=== PATIENT | male | born 1965 | race Caucasian/White ===

== ENCOUNTER → 2019-08-21 13:43 | Outpatient (BNVA) | payer OTHER, SELFPAY | PROVIDERS: Family Provider Emergency Medicine Emergency Medical Services; PCP Emergency Medicine Emergency Medical Services; Visit Provider Specialist | DX: G43.719 Chronic migraine without aura, intractable, without status migrainosus (principal); I67.9 Cerebrovascular disease, unspecified; Z87.891 Personal history of nicotine dependence | CPT/HCPCS: 64615; 99212; J0585 ==

== ENCOUNTER → 2019-11-15 09:32 | Outpatient (BNVA) | payer OTHER, SELFPAY | PROVIDERS: Family Provider Emergency Medicine Emergency Medical Services; PCP Emergency Medicine Emergency Medical Services; Visit Provider Specialist | DX: G43.711 Chronic migraine without aura, intractable, with status migrainosus (principal); Z87.891 Personal history of nicotine dependence | CPT/HCPCS: 64615; 96372; J0585; J1885; J2405 ==

== ENCOUNTER → 2020-02-14 08:50 | Outpatient (BNVA) | payer OTHER, SELFPAY | PROVIDERS: Family Provider Emergency Medicine Emergency Medical Services; PCP Emergency Medicine Emergency Medical Services; Visit Provider Specialist | DX: G43.711 Chronic migraine without aura, intractable, with status migrainosus (principal); Z95.2 Presence of prosthetic heart valve | CPT/HCPCS: 64615; 96372; J0585; J1885 ==

== ENCOUNTER 2020-02-18 15:20 | Emergency (ER) | payer OTHER, SELFPAY ==
[2020-02-18 16:01] VITALS: BP 139/88; PULSE 97; RESP 18; TEMP 36.7; O2SAT 94; BMI 38.5
--- NOTE | 2020-02-18 16:19 | W.ED.HA ---
HPI - Headache General: Chief Complaint: Headache Stated Complaint: migrane Time Seen by Provider: 02/18/20 16:02 History of Present Illness: HPI Narrative: Patient is a 54-year-old male who comes to the ED with a migraine. Patient has a past medical history of hyperlipidemia and hypertension and migraines and has been seen Dr. Person and receiving Botox injections. Patient reports migraine has been going on now for almost 2 weeks. It is gotten significantly worse in the past 3 days. Migraine is rated a 10 out of 10 currently says that this is where the worst migraine he has ever had. migraine is retroorbital. Associated symptoms: Reports nausea; Deny chest pain, fever(s), rash or vomiting Review of Systems Const: Denies: fever(s), chills or fatigue Eyes: Reports: photophobia; Denies: change in vision or eye discomfort ENMT: Denies: throat pain, odynophagia, nasal discharge or nasal congestion Card: Denies: chest pain, palpitations, edema, swelling of feet/ankles, dyspnea on exertion or orthopnea Resp: Denies: dyspnea, productive cough or non-productive cough GI: Reports: nausea; Denies: abdominal pain, vomiting, diarrhea, constipation or hematochezia : Denies: flank pain, difficulty urinating, dysuria or hematuria Musc: Denies: neck pain, back pain or extremity swelling Skin/Breast: Denies: rash or new lesions Neuro: Reports: headache(s); Denies: numbness in extremities or weakness in extremities PFSH ED PFSH: Medical History HTN (hypertension) Hyperlipidemia Leg swelling Surgical History Hx of aortic valve replacement Hx of aortic valvuloplasty Family History Other CAD (coronary artery disease) Cancer Denies family history of Diabetes Hypertension Stroke Social History Smoking and tobacco status: former smoker Quit status (tobacco): has quit using tobacco Year quit tobacco: 2014 Alcohol intake: former History of recent travel: No Physical Exam Narrative: EXAM NARRATIVE: Patient is a 54-year-old male that is lying in bed with the lights off and with an eye mask on when I entered the exam room. Const: COMMON NORMALS: patient oriented x3 and alert GENERAL APPEARANCE: cooperative HENMT: COMMON NORMALS: normocephalic HEAD & SCALP: normocephalic MOUTH: Normal oral and palatal mucosa present THROAT: posterior oropharynx normal and uvula midline Neck/C-Spine: COMMON NORMALS: supple GENERAL: Yes normal visual inspection Resp: COMMON NORMALS: normal respiratory effort, No retractions, No use of accessory muscles and clear to auscultation bilaterally AUSCULTATION: clear to auscultation bilaterally Cardio: COMMON NORMALS: regular rate, regular rhythm, S1 normal heart sound present, S2 normal heart sound present, No gallops present (Cardio), No clicks present (Cardio), No murmurs present (Cardio) and Peripheral pulses 2+ throughout RATE: regular rate RHYTHM: regular rhythm HEART SOUNDS: S1 normal heart sound present and S2 normal heart sound present PERIPHERAL PULSES: Peripheral pulses 2+ throughout GI: COMMON NORMALS: Normal to inspection, nondistended, normoactive bowel sounds present, Soft to palpation, non-tender and no masses PALPATION: Yes Soft to palpation : COMMON NORMALS: Yes no CVA tenderness BLADDER/KIDNEY EXAM: Yes no CVA tenderness Back/Pelvis: COMMON NORMALS: no CVA tenderness Extremity: COMMON NORMALS: normal to inspection and no pedal edema Neuro: COMMON NORMALS: patient oriented x3 and moves all extremities SENSORIUM/ORIENTATION: Yes alert Skin: COMMON NORMALS: no rashes or lesions noted GENERAL SKIN EXAM: no rashes or lesions noted and dry skin Course Vital Signs: Vital signs: Vital Signs Temperature 98.1 F 02/18/20 16:01 Pulse Rate 82 02/18/20 18:15 Respiratory Rate 18 02/18/20 18:15 Blood Pressure 153/77 02/18/20 18:15 Pulse Oximetry 95 02/18/20 18:15 MDM - Headache MDM Narrative: Medical decision making narrative: Patient is a 54-year-old male who comes to the ED with a migraine. He has a past medical history of stroke, hypertension, hyperlipidemia and migraines. Patient stated that this is the longest migraine that he is ever had and worst, so head CT was ordered. CT of the head showed no acute findings, but some chronic encephalomalacia was noted in left temporal and parietal lobe. Patient was given migraine cocktail and his migraine improved. Patient was discharged and told to follow-up with his PCP in 7 to 10 days. Return to ED precautions given. Patient understood and agreed with plan. Imaging Data^: CT Head: Attestation: I personally reviewed and interpreted this imaging study as follows: Radiologist's impression: [address] [place] [address] CT Scan Report Signed Patient: Lizbeth Theodore #: [id number] : 1965Acct#:[id number] Age/Sex: 54 / MADM Date: 02/18/20 Loc: ERRoom/Bed: Attending Dr: Ordering Provider/Ordering MD: Driss Luque Date of Service: 02/18/20 Procedure(s): CT head wo con* [id number] Accession Number(s): [id number] Report Number: [id number] PROCEDURE INFORMATION: Exam: CT Head Without Contrast Exam date and time: 02/18/2020 4:33 PM Age: 54 years old Clinical indication: Pain; Headache; Additional info: Migraine TECHNIQUE: Imaging protocol: Computed tomography of the head without contrast. Radiation optimization: All CT scans at this facility use at least one of these dose optimization techniques: automated exposure control; mA and/or kV adjustment per patient size (includes targeted exams where dose is matched to clinical indication); or iterative reconstruction. COMPARISON: CT head wo con* [id number] 10/01/2018 3:08 PM RADIATION DOSE METRICS: Total DLP (mGy-cm): 898.52 FINDINGS: Brain: There is encephalomalacia in the left temporal parietal lobes compatible with old infarct. There is no acute hemorrhage, edema or mass effect. There is unchanged mass in the suprasellar cistern containing fat and calcification measuring 11 mm in size unchanged in configuration. Ventricles: Normal. No ventriculomegaly. Bones/joints: Unremarkable. No acute fracture. Sinuses: Visualized sinuses are unremarkable. No fluid levels. Mastoid air cells: Visualized mastoid air cells are well aerated. Soft tissues: Unremarkable. CT/CT head wo con* [id number] IMPRESSION: 1. No acute intracranial abnormality. Chronic encephalomalacia of the left temporal/parietal lobe is noted. No hemorrhage. 2. Unchanged suprasellar mass containing fat and calcium . This may be a dermoid lesion or craniopharyngioma. Radiation Dose CTDIVOL = (mGy): DLP = 898.52 (mGy-cm) Dictated By:Erika Thrasher Signed By:Isaac Thrasherigned Date/Time:02/18/201714 DD/ 12 Discharge Plan Discharge Patient Disposition: Home Clinical Impression: Migraine Qualifiers: Migraine type: without aura Status migrainosus presence: with status migrainosus Intractability: not intractable Qualified Code(s): G43.001 - Migraine without aura, not intractable, with status migrainosus Condition: Stable Prescriptions: No Action aspirin [Aspir-81] 81 mg tablet,delayed release (DR/EC) 81 mg PO DAILY RF: 0 cholecalciferol (vitamin D3) 2,000 unit tablet 2,000 unit PO DAILY RF: 0 diltiazem HCl 60 mg tablet 60 mg PO BID RF: 0 trazodone 100 mg tablet 100 mg PO DAILY RF: 0 omega-3 fatty acids [Fish Oil Concentrate] 1,000 mg capsule 1,000 mg PO BID RF: 0 metoprolol tartrate 50 mg tablet 25 mg PO BID RF: 0 omeprazole 40 mg capsule,delayed release(DR/EC) 40 mg PO BID RF: 0 lamotrigine 200 mg tablet 200 mg PO DAILY RF: 0 venlafaxine 75 mg tablet See Rx Instructions PO DAILY RF: 0 rosuvastatin 10 mg tablet 10 mg PO DAILY RF: 0 warfarin 6 mg tablet 6 mg PO DAILY RF: 0 ascorbic acid (vitamin C) 500 mg capsule 500 mg PO DAILY RF: 0 ferrous sulfate 325 mg (65 mg iron) tablet 325 mg PO DAILY RF: 0 zonisamide [Zonegran] 100 mg capsule 400 mg PO DAILY Qty: 120 RF: 4 Discharge Orders: Discharge Order (Routine); Ordered 02/18/20 Ordered By: Driss Luque Referrals: aKm Lainez DO [Primary Care Provider] - Discharge Diet: Regular Discharge Activity: Resume usual activity Patient Instructions: Migraine Headache (ED) Activity Restrictions/Additional Instructions: Follow-up with medical provider as directed in 7-10 days. Continue taking all home medications as previously prescribed. Return to the ER or your medical provider if condition worsens. Please read and understand discharge instructions. If any questions, please ask. 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
[2020-02-18] MEDS: diphenhydrAMINE 50 mg/mL SDV 1mL 25 MG IVP (17:35)
[2020-02-18] MEDS: dexamethasone 10 mg/mL INJ IVP (17:40)
[2020-02-18] MEDS: ketorolac 30 mg/mL INJ IVP (17:40)
[2020-02-18 18:15] VITALS: BP 153/77; PULSE 82; RESP 18; O2SAT 95
== END 2020-02-18 18:17 | disposition home or self-care (01) ==
PROVIDERS: Emergency Provider Physician Assistant; PCP Emergency Medicine Emergency Medical Services
DX: G43.001 Migraine without aura, not intractable, with status migrainosus (principal); Z79.82 Long term (current) use of aspirin; Z79.01 Long term (current) use of anticoagulants; I10 Essential (primary) hypertension; E78.5 Hyperlipidemia, unspecified; Z87.891 Personal history of nicotine dependence
CPT/HCPCS: 12345; 70450; 96374; 96375; 99282; 99284; J1100; J1200; J1885; J3490

== ENCOUNTER → 2020-07-17 11:33 | Outpatient (BNVA) | payer OTHER, SELFPAY | PROVIDERS: PCP Emergency Medicine Emergency Medical Services; Visit Provider Specialist | DX: G43.711 Chronic migraine without aura, intractable, with status migrainosus (principal); S09.90XA Unspecified injury of head, initial encounter; W10.8XXA Fall (on) (from) other stairs and steps, initial encounter; Y92.9 Unspecified place or not applicable; Z87.891 Personal history of nicotine dependence | CPT/HCPCS: 64615; 99214; J0585 ==

== ENCOUNTER 2020-07-17 13:24 | Outpatient (CLI) | payer OTHER, SELFPAY ==
--- NOTE | 2020-07-17 13:00 | CT_ITS ---
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 Bone and soft tiss ue windows. Sagittal and coronal reformats reviewed. All CT scans at [facility] use at le ast one of these dose optimization techniques: automated exposure control; mA and/or kV adjustment pe r patient size (includes targeted exams where dose is matched to clinical indication); or iterative r econstruction. DLP: 857.68 mGy.cm COMPARISON: 02/18/2020. No acute intracranial hemorrhage, midline shift or mass effect. Mild atrophy and chronic ischemic disease. Prior infarct with encephalomalacia involving the LEFT tem poral lobe. Ventricles: Normal size with no hydrocephalus. Paranasal sinuses: As visualized are clear. Mastoid air cells: Well pneumatized. Calvarium and scalp: Skull is intact with no soft tissue edema or swelling. CT/CT head wo con* [id number] IMPRESSION: 1. No acute intracranial hemorrhage. 2. Prior remote LEFT temporal lobe infarct with encephalomalacia is stable.
== END 2020-07-17 13:25 | disposition home or self-care (01) ==
LOC: CT 13:25
PROVIDERS: PCP Emergency Medicine Emergency Medical Services; Visit Provider Specialist
DX: Z79.01 Long term (current) use of anticoagulants (principal); G93.89 Other specified disorders of brain
CPT/HCPCS: 70450

== ENCOUNTER 2020-08-24 19:51 | Emergency (ER) | payer OTHER, SELFPAY ==
[2020-08-24 20:06] VITALS: BP 132/85; BP 141/88; PULSE 101; PULSE 107; RESP 14; RESP 16; TEMP 37.6; O2SAT 94; O2SAT 96; O2SAT 99; BMI 35.3
--- NOTE | 2020-08-24 20:12 | XRR_ITS ---
PROCEDURE INFORMATION: Exam: XR Chest, 1 View Exam date and time: 08/24/2020 8:25 PM Age: 54 years old Clinical indication: Prior surgery; Surgery type: Aortic valve; Patient HX: Covid symptoms, fever, nausea TECHNIQUE: Imaging protocol: XR of the chest Views: 1 view. COMPARISON: CR Chest 1 [place] [id number] 09/24/2018 6:10 PM FINDINGS: Lungs: Unremarkable. No consolidation. Pleural spaces: Unremarkable. No pleural effusion. No pneumothorax. Heart/Mediastinum: Unremarkable. No cardiomegaly. Bones/joints: Median sternotomy wires are present. XR/XR chest 1V portable [id number] IMPRESSION: 1. No radiographic findings of acute cardiopulmonary disease.
--- NOTE | 2020-08-24 20:18 | ED_ITS ---
HPI - COVID General: Chief Complaint: COVID symptoms Stated Complaint: COVID symptoms Time Seen by Provider: 08/24/20 20:11 Source: patient Mode of arrival: ambulatory Limitations: no limitations Triage information: Has fever, cough or shortness of breath . Exposure to COVID + person last 14 days History of Present Illness: HPI Narrative: 54-year-old male who states over the last 4 days he has had a cough along with some congestion and nausea. He states he is also had body aches and low-grade fevers. He has had a headache with no neck pain or stiffness. He denies any vomiting or diarrhea. Denies any neck pain. He has had sick contacts and his has had the same symptoms. COVID 19 common symptoms: positive fever(s), chills, non-productive cough, body aches, headache(s) and nausea; negative throat pain COVID 19 other sytmptoms: negative chest pain COVID Results: SARS-CoV-2 Antigen (Rapid) Positive (Negative) H 08/24/20 20:52 08/24/20 Review of Systems Const: Reports: fever(s), chills and body aches Eyes: Denies: blurry vision or eye discomfort ENMT: Denies: throat pain or dental pain Card: Denies: chest pain Resp: Reports: non-productive cough GI: Reports: nausea : Denies: dysuria Musc: Denies: neck pain or back pain Skin/Breast: Denies: rash Neuro: Reports: headache(s) Psych: Denies: depression Gerry/Lymph: Denies: easy bruising All/Imm: Denies: urticaria PFSH ED PFSH: Medical History (Updated 08/24/20 @ 21:41 by Jesus Banerjee MD) HTN (hypertension) Hyperlipidemia Leg swelling Surgical History Hx of aortic valve replacement Hx of aortic valvuloplasty Family History Other CAD (coronary artery disease) Cancer Denies family history of Diabetes Hypertension Stroke Social History Smoking and tobacco status: former smoker Quit status (tobacco): has quit using tobacco Year quit tobacco: 2015 Alcohol intake: former History of recent travel: No Physical Exam Const: COMMON NORMALS: no acute distress, patient oriented x3 and healthy appearing HENMT: COMMON NORMALS: normocephalic and atraumatic HEAD & SCALP: normocephalic and atraumatic Eye: COMMON NORMALS: Equal, round and reactive pupils present and EOMs intact bilaterally PUPIL: Yes Equal, round and reactive pupils present Neck/C-Spine: COMMON NORMALS: full ROM and supple Chest: COMMONS NORMALS: normal inspection of the chest and normal palpation of entire chest wall Resp: COMMON NORMALS: normal respiratory effort, No retractions, No use of accessory muscles and clear to auscultation bilaterally AUSCULTATION: clear to auscultation bilaterally Cardio: COMMON NORMALS: regular rate, regular rhythm and No murmurs present (Cardio) RATE: regular rate RHYTHM: regular rhythm GI: COMMON NORMALS: Normal to inspection, nondistended, normoactive bowel sounds present, Soft to palpation, non-tender and no masses PALPATION: Yes Soft to palpation Extremity: COMMON NORMALS: normal to inspection and full ROM Neuro: COMMON NORMALS: patient oriented x3, moves all extremities and no focal motor deficits Psych: COMMON NORMALS: mental status grossly normal, Normal thought process present and cooperative THOUGHT PROCESS: Normal thought process present Skin: COMMON NORMALS: no rashes or lesions noted and no wounds GENERAL SKIN EXAM: no rashes or lesions noted Course Vital Signs: Vital signs: Vital Signs Temperature 99.6 F 08/24/20 20:06 Pulse Rate 99 08/24/20 20:36 Respiratory Rate 16 08/24/20 20:36 Blood Pressure 141/88 08/24/20 20:36 Pulse Oximetry 96 08/24/20 20:36 MDM - COVID MDM Narrative: Medical decision making narrative: Patient presents here with Covid likely causing his symptoms. He is not hypoxic and in no distress. Patient is stable for discharge and is to follow-up his PCP and return if worsening. He does have a pulse ox monitor and is to monitor his pulse ox. Lab Data: Labs: Lab Results 08/24/20 08/24/20 08/24/20 Range/Units 20:42 20:42 20:52 WBC 6.2 (4.0-10.0) 10^3/ uL RBC 5.23 (4.1-5.3) 10^6/u L Hgb 16.3 (11.7-16.6) g/dL Hct 49.2 (42.0-52.0) % MCV 94.1 H (80-94) fL MCH 31.2 (28.0-34.0) pg MCHC 33.1 (30.0-36.0) g/dL RDW 16.1 H (12.1-15.1) % Plt Count 163 (130-400) 10^3/c mm MPV 11.4 H (7.4-10.4) fL Neut % (Auto) 69.5 % Lymph % (Auto) 17.2 % Obion % (Auto) 12.8 % Eos % (Auto) 0.0 % Baso % (Auto) 0.2 % Neut # (Auto) 4.27 (1.8-7.7) 10^3/u L Lymph # (Auto) 1.1 (0.8-4.8) 10^3/u L [place] # (Auto) 0.8 (0.2-0.9) 10^3/u L Eos # (Auto) 0.0 (0.0-0.8) 10^3/u L Baso # (Auto) 0.0 (0.0-0.1) 10^3/u L Nucleated RBC % (a uto) 0 % Nucleated RBCs # 0.0 /100WBC Sodium Cancelled Potassium Cancelled Chloride Cancelled Carbon Dioxide Cancelled Anion Gap Cancelled BUN Cancelled Creatinine Cancelled GFR Calculation Cancelled Glucose Cancelled Calculated Osmolal ity Cancelled Calcium Cancelled Total Bilirubin Cancelled AST Cancelled ALT Cancelled Alkaline Phosphata se Cancelled Total Protein Cancelled Albumin Cancelled Globulin Cancelled Lipase Cancelled Urine Color (Yellow) Urine Appearance (CLEAR) Urine pH (5-7) Ur Specific Gravit y (1.005-1.030) Urine Protein (Negative) Urine Glucose (UA) (Normal) Urine Ketones (Negative) Urine Blood (Negative) Urine Nitrate (Negative) Urine Bilirubin (Negative) Urine Urobilinogen (Negative) mg/dL Ur Leukocyte Beatrice ase (Negative) Influenza Type A A g (Negative) Influenza Type B A g (Negative) SARS-CoV-2 Ag (Rap id) Positive H (Negative) 08/24/20 08/24/20 08/24/20 Range/Units 20:52 20:52 21:07 WBC (4.0-10.0) 10^3/ uL RBC (4.1-5.3) 10^6/u L Hgb (11.7-16.6) g/dL Hct (42.0-52.0) % MCV (80-94) fL MCH (28.0-34.0) pg MCHC (30.0-36.0) g/dL RDW (12.1-15.1) % Plt Count (130-400) 10^3/c mm MPV (7.4-10.4) fL Neut % (Auto) % Lymph % (Auto) % [place] % (Auto) % Eos % (Auto) % Baso % (Auto) % Neut # (Auto) (1.8-7.7) 10^3/u L Lymph # (Auto) (0.8-4.8) 10^3/u L [place] # (Auto) (0.2-0.9) 10^3/u L Eos # (Auto) (0.0-0.8) 10^3/u L Baso # (Auto) (0.0-0.1) 10^3/u L Nucleated RBC % (a uto) % Nucleated RBCs # /100WBC Sodium 132 L Potassium 4.0 Chloride 100 Carbon Dioxide 22 Anion Gap 14.0 BUN 16 Creatinine 1.2 GFR Calculation 62.6 L Glucose 100 Calculated Osmolal ity 275 L Calcium 8.9 Total Bilirubin 0.4 AST 32 ALT 49 H Alkaline Phosphata se 77 Total Protein 7.1 Albumin 4.3 Globulin 2.8 Lipase 29 Urine Color Yellow (Yellow) Urine Appearance Clear (CLEAR) Urine pH 5 (5-7) Ur Specific Gravit y 1.020 (1.005-1.030) Urine Protein Neg (Negative) Urine Glucose (UA) Norm (Normal) Urine Ketones Negative (Negative) Urine Blood Neg (Negative) Urine Nitrate Negative (Negative) Urine Bilirubin Neg (Negative) Urine Urobilinogen Norm (Negative) mg/dL Ur Leukocyte Beatrice ase Negative (Negative) Influenza Type A A g Negative (Negative) Influenza Type B A g Negative (Negative) SARS-CoV-2 Ag (Rap id) (Negative) Imaging Data: CXR: Attestation: I personally reviewed and interpreted this imaging study as follows: My impression: No acute abnormality COVID Results: SARS-CoV-2 Antigen (Rapid) Positive (Negative) H 08/24/20 20:52 08/24/20 Discharge Plan Discharge Patient Disposition: Home Clinical Impression: COVID-19 Condition: Stable Prescriptions: No Action buspirone 10 mg tablet 20 mg PO BID RF: 0 aspirin [Aspir-81] 81 mg tablet,delayed release (DR/EC) 81 mg PO DAILY RF: 0 cholecalciferol (vitamin D3) 2,000 unit tablet 2,000 unit PO DAILY RF: 0 diltiazem HCl 60 mg tablet 60 mg PO BID RF: 0 trazodone 100 mg tablet 100 mg PO DAILY RF: 0 omega-3 fatty acids [Fish Oil Concentrate] 1,000 mg capsule 1,000 mg PO BID RF: 0 metoprolol tartrate 50 mg tablet 25 mg PO BID RF: 0 omeprazole 40 mg capsule,delayed release(DR/EC) 40 mg PO BID RF: 0 lamotrigine 200 mg tablet 200 mg PO DAILY RF: 0 venlafaxine 75 mg tablet See Rx Instructions PO DAILY RF: 0 rosuvastatin 10 mg tablet 10 mg PO DAILY RF: 0 warfarin 6 mg tablet 6 mg PO DAILY RF: 0 ascorbic acid (vitamin C) 500 mg capsule 500 mg PO DAILY RF: 0 ferrous sulfate 325 mg (65 mg iron) tablet 325 mg PO DAILY RF: 0 zonisamide [Zonegran] 100 mg capsule 400 mg PO DAILY Qty: 120 RF: 2 Discharge Orders: Discharge ED (Routine); Ordered 08/24/20 Ordered By: Jesus Banerjee Referrals: Kam Lainez DO [Primary Care Provider] - Discharge Diet: Advance as tolerated Discharge Activity: Resume usual activity Patient Instructions: Upper Respiratory Infection (ED) Coding Level of Care Code 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
[2020-08-24] MEDS: acetaminophen 325 mg Tablet 650 MG PO (20:29)
[2020-08-24] MEDS: ondansetron 2 mg/ML SDV 2 mL 4 MG IVP (20:30)
[2020-08-24 20:36] VITALS: BP 141/88; PULSE 99; RESP 16; O2SAT 96
[2020-08-24 20:49] LABS: Basophils % 0.2 %; Hematocrit 49.2 % (42.0-52.0); Hemoglobin 16.3 g/dL (11.7-16.6); Lymphocytes # 1.1 10^3/uL (0.8-4.8); Lymphocytes % 17.2 %; Mean Corpuscular HGB Conc 33.1 g/dL (30.0-36.0); Mean Corpuscular Hemoglobin 31.2 pg (28.0-34.0); Mean Corpuscular Volume 94.1 fL (80-94); Mean Platelet Volume 11.4 fL (7.4-10.4); Monocytes # 0.8 10^3/uL (0.2-0.9); Monocytes % 12.8 %; Neutrophils # 4.27 10^3/uL (1.8-7.7); Neutrophils % 69.5 %; Nucleated Red Blood Cells % 0 %; Platelet Count 163 10^3/cmm (130-400); Red Blood Count 5.23 10^6/uL (4.1-5.3); Red Cell Distribution Width 16.1 % (12.1-15.1); White Blood Count 6.2 10^3/uL (4.0-10.0)
[2020-08-24 21:06] VITALS: BP 138/77; PULSE 100; RESP 16; O2SAT 94
[2020-08-24 21:11] LABS: Add Urine Microscopic? NO
[2020-08-24 21:19] LABS: Bilirubin Urine Neg (Negative); Blood Urine Neg (Negative); Glucose Urine UA Norm (Normal); Ketones Urine Negative (Negative); Leukocyte Esterase Urine Negative (Negative); Nitrate Urine Negative (Negative); Protein Urine Neg (Negative); Urine Appearance Clear (CLEAR); Urine Color Yellow (Yellow); Urobilinogen Urine Norm (Negative); pH Urine 5 (5-7)
[2020-08-24 21:29] LABS: Alanine Aminotransferase 49 U/L (0-41); Albumin Level 4.3 g/dL (3.5-5.2); Alkaline Phosphatase 77 IU/L (40-130); Aspartate Amino Transferase 32 U/L (0-40); Blood Urea Nitrogen 16 mg/dL (6-20); Calcium 8.9 mg/dL (8.5-10.5); Carbon Dioxide 22 mmol/L (22-29); Chloride 100 mmol/L (98-107); Globulin 2.8 g/dL (1.3-4.6); Glomerular Filtration Rate 62.6 mL/min (90-130); Glucose 100 mg/dL (65-115); Lipase 29 U/L (13-60); Osmolality Calculated 275 mOsm/kg (285-295); Sodium 132 mmol/L (136-145); Total Bilirubin 0.4 mg/dL (0.15-1.2); Total Protein 7.1 g/dL (6.6-8.7)
[2020-08-24 21:36] VITALS: BP 124/68; PULSE 101; RESP 18; O2SAT 96
[2020-08-24 21:40] LABS: Influenza A by IFA Negative (Negative); Influenza B by IFA Negative (Negative); SARS Covid-2 Antigen Positive (Negative)
[2020-08-24] MEDS: ketorolac 30 mg/mL INJ 15 MG IVP (21:59)
[2020-08-24 22:06] VITALS: BP 146/77; PULSE 92; RESP 18; O2SAT 95
[2020-08-24 22:12] VITALS: BP 132/84; PULSE 88; RESP 16; TEMP 36.7; O2SAT 95
== END 2020-08-24 22:13 | disposition home or self-care (01) ==
PROVIDERS: Emergency Provider Emergency Medicine; PCP Emergency Medicine Emergency Medical Services
DX: U07.1 COVID-19 (principal); Z79.82 Long term (current) use of aspirin; Z79.01 Long term (current) use of anticoagulants; I10 Essential (primary) hypertension; E78.5 Hyperlipidemia, unspecified; Z87.891 Personal history of nicotine dependence
CPT/HCPCS: 71045; 80053; 81003; 83690; 85025; 87426; 87804; 96374; 96375; 99283; J1885; J2405

== ENCOUNTER 2020-08-28 04:12 | Inpatient (IN) | payer OTHER, SELFPAY ==
[2020-08-28] VITALS (15 sets, daily range): BP systolic 109–135; BP diastolic 69–84; PULSE 8–91; RESP 17–24; TEMP 36.5–36.7; O2SAT 83–95; BMI 35.6
--- NOTE | 2020-08-28 04:43 | PM.HP ---
Providers/Chief Complaint Admitting Physician: Antony Tyson MD Primary Care Provider: Kam Lainez DO Chief Complaint: Shortness of breath History of Present Illness Parker Theodore is a 54 year old male who has a history of aortic valve replacement, currently on Coumadin, presented to [facility] for chief complaint of respiratory distress. Patient contracted COVID-19 pneumonia on 08/24. He was discharged from the emergency department on 08/24 because he was not hypoxic and was asked to follow-up with PCP. Patient is stating that at home he started becoming febrile, his temperature was consistently around 101 1-2 for 3 days, he started becoming hypoxic, O2 saturation was dropping up to low 80s that is why he decided to go to the hospital. His is also sick with COVID-19 pneumonia. Patient is endorsing pleuritic chest pain on deep breathing, denying diarrhea, vomiting. At [facility] he was requiring 4 to 5 L of nasal cannula oxygenation to keep saturation above 90% however on arrival his O2 saturation was in low 80s on 5 L hence he was switched to nonrebreather which was not helpful hence decision was made to put him on high flow oxygen at the time of my evaluation he was on 35 L 55% FiO2, saturating 93%. CBC unremarkable, BMP revealed hypokalemia potassium 3.7, hypomagnesemia magnesium 1.9, lactic acid normal, BNP not severely high, troponin not significantly high. Chest x-ray revealed peripheral infiltrate consistent with COVID-19 I have requested procalcitonin level LDH, D-dimer and CRP. We will start him on remdesivir, vitamin C, zinc and Decadron. He was given ceftriaxone and azithromycin at the outside facility. Review of Systems Const: Reports: fever(s), chills, body aches, fatigue and malaise Eyes: Denies: change in vision ENMT: Denies: throat pain Card: Reports: chest pain and dyspnea on exertion; Denies: swelling of feet/ankles, pre-syncope or orthopnea Resp: Reports: dyspnea, non-productive cough and pain on inspiration GI: Denies: abdominal pain, bloating or GI cramping : Denies: flank pain Musc: Denies: neck pain Skin/Breast: Denies: rash Neuro: Denies: headache(s) Psych: Denies: anxiety Endo: Denies: polyuria Gerry/Lymph: Denies: easy bruising All/Imm: Denies: urticaria Medications/Allergies Home Medications Medication Instructions Recorded Confirmed Last Taken Type ascorbic acid (vitamin C) 500 mg 500 mg PO DAILY cap 08/21/19 07/17/20 02/18/20 History capsule aspirin 81 mg tablet,delayed 81 mg PO DAILY 08/21/19 07/17/20 02/18/20 History release cholecalciferol (vitamin D3) 50 2,000 unit PO DAILY 08/21/19 07/17/20 02/18/20 History mcg (2,000 unit) tablet diltiazem HCl 60 mg tablet 60 mg PO BID tab 08/21/19 07/17/20 02/18/20 History ferrous sulfate 325 mg (65 mg 325 mg PO DAILY 08/21/19 07/17/20 02/18/20 History iron) tablet lamotrigine 200 mg tablet 200 mg PO DAILY 08/21/19 07/17/20 02/18/20 History metoprolol tartrate 50 mg tablet 25 mg PO BID 08/21/19 07/17/20 02/18/20 History omega-3 fatty acids 1,000 mg 1,000 mg PO BID 08/21/19 07/17/20 02/18/20 History capsule omeprazole 40 mg capsule,delayed 40 mg PO BID 08/21/19 07/17/20 02/18/20 History release rosuvastatin 10 mg tablet 10 mg PO DAILY 08/21/19 07/17/20 02/17/20 History trazodone 100 mg tablet 100 mg PO DAILY 08/21/19 07/17/20 02/17/20 History venlafaxine 75 mg tablet See Rx Instructions PO DAILY 08/21/19 07/17/20 02/18/20 History warfarin 6 mg tablet 6 mg PO DAILY 08/21/19 07/17/20 02/17/20 History buspirone 10 mg tablet 20 mg PO BID tab 07/17/20 07/17/20 Unknown History zonisamide 100 mg capsule 400 mg PO DAILY #120 cap 08/11/20 Unknown Rx Allergies Allergy/AdvReac Type Severity Reaction Status Date / Time methocarbamol Allergy tachycardia Verified 07/17/20 11:47 metoclopramide [From Reglan] Allergy vomit Verified 07/17/20 11:47 oxycodone AdvReac aggitation Verified 07/17/20 11:47 pravastatin AdvReac muscle pain Verified 07/17/20 11:47 sumatriptan AdvReac rash Verified 07/17/20 11:47 PFSH Acute PFSH: Medical History HTN (hypertension) Hyperlipidemia Leg swelling Surgical History Hx of aortic valve replacement Hx of aortic valvuloplasty Family History Other CAD (coronary artery disease) Cancer Denies family history of Diabetes Hypertension Stroke Social History Smoking and tobacco status: former smoker Quit status (tobacco): has quit using tobacco Year quit tobacco: 2014 Alcohol intake: former History of recent travel: No Vitals/I&O/Wt Weight last 48 hrs Weight 126.189 kg Weight 126.155 kg Physical Exam Narrative: EXAM NARRATIVE: Pleasant middle-age male who appears stated age When I entered the room he was on high flow oxygen 55% 35 L saturating 93% His complexion was pale with very mild cyanotic appearance of his lips however earlobes tip of nose and digits did not show any cyanotic changes Patient complaint of pleuritic chest pain on deep breathing S1, S2 loud aortic A2, mechanical valve No signs of heart failure Obese, Central obesity nontender abdomen Lower extremity no edema No cellulitis gangrene ischemia or joint swelling Appropriate mood and affect Bilateral diminished breath sounds no active stridor wheezing or rhonchi Neurologically nonfocal exam GCS 15 awake alert oriented times3 A&P Assessment and plan (1) Acute respiratory failure with hypoxia: COVID-19 tested positive on 08/24 Currently requiring high flow oxygenation 55 percent 35 L We will start him on vitamin C, zinc, remdesivir and Decadron Would request procalcitonin level, I would not continue antibiotics for now, he received ceftriaxone and azithromycin at outside facility, currently is afebrile with normal hemodynamic Initial ABG revealed hypoxia, PO2 63%, high flow shows improvement in saturation Patient is denying diarrhea Status: Acute (2) COVID-19: Symptoms started 3 days before he tested positive for COVID-19 pneumonia on 08/24 Management as mentioned above Status: Acute (3) Hypokalemia: Potassium repleted Status: Acute (4) Hypomagnesemia: Magnesium repleted Status: Acute Additional A&P Information Mechanical aortic valve: INR 2.2, continue Coumadin dose and check INR on daily basis Target INR 2.5-3.5 History of migraines: No acute decompensation Cardiac diet Full code DVT prophylaxis not indicated because of Coumadin usage Attestations Medical Necessity Statement*: Anticipating stay in the hospital cross more than 2 midnights currently need oxygenation for COVID-19 pneumonia, severe requiring high flow oxygenation Time Spent in Patient Care: (>than 50% of time spent in counselling and/or direct pt care on unit). 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
[2020-08-28] MEDS: remdesivir 200 MG in sodium chloride 0.9% (100 ml) 100 ML 100 MG IV (05:43)
[2020-08-28 05:52] LABS: Hematocrit 42.8 % (42.0-52.0); Hemoglobin 14.3 g/dL (11.7-16.6); Lymphocytes # 0.4 10^3/uL (0.8-4.8); Lymphocytes % 12.6 %; Mean Corpuscular HGB Conc 33.4 g/dL (30.0-36.0); Mean Corpuscular Hemoglobin 30.8 pg (28.0-34.0); Mean Platelet Volume 11.3 fL (7.4-10.4); Monocytes # 0.2 10^3/uL (0.2-0.9); Monocytes % 5.5 %; Neutrophils # 2.64 10^3/uL (1.8-7.7); Neutrophils % 81.3 %; Nucleated Red Blood Cells % 0 %; Platelet Count 154 10^3/cmm (130-400); Red Blood Count 4.65 10^6/uL (4.1-5.3); Red Cell Distribution Width 12.7 % (12.1-15.1); White Blood Count 3.3 10^3/uL (4.0-10.0)
[2020-08-28 06:02] LABS: INR 1.59 (0.8-1.2)
[2020-08-28 06:05] LABS: D Dimer 0.54 ug/mIFEU (0-0.59)
[2020-08-28 06:17] LABS: Procalcitonin 0.23 ng/mL (0-0.5)
[2020-08-28 06:28] LABS: Blood Urea Nitrogen 17 mg/dL (6-20); C Reactive Protein 63.9 mg/L (0.0-4.9); Calcium 8.4 mg/dL (8.5-10.5); Carbon Dioxide 22 mmol/L (22-29); Chloride 101 mmol/L (98-107); Glomerular Filtration Rate 87.3 mL/min (90-130); Glucose 191 mg/dL (65-115); Lactate Dehydrogenase 709 U/L (135-225); Osmolality Calculated 285 mOsm/kg (285-295); Sodium 134 mmol/L (136-145)
--- NOTE | 2020-08-28 06:31 | PC.NURSE ---
PATIENT STATUS: PATIENT ARRIVED VIA STRETCHER FROM [facility] A DIRECT ADMIT. PATIENT TRANSFERRED TO BED FROM STRETCH WITH STANDBY. PATIENT SITUATED IN THE BED AND ORIENTED TO ROOM. WHILE ASSESSING PATIENT AND GETTING VITAL SIGNS THE PATIENT WAS NOTED TO BE SATING AT 89-91% WITH THE 6 LITERS VIA OXY MASK. AFTER A FEW MINUTES THIS WAS RECHECKED AND WAS DOWN TO 88%. OXYGEN INCREASED TO 8 LITERS. GAVE THIS A FEW MINUTES AND RECHECKED, NO IMPROVEMENT. INCREASED TO 10 LITERS, NO IMPROVEMENT. CALL TO RESPIRATORY MADE AND CONSULTED ON WHAT TO DO NEXT. SUGGESTION OF SWITCHING TO A NON RE-BREATHER MASK AT 15 LITERS. THIS WAS DONE AND PATIENT INCREASED TO 94%. CALL TO HOSPITALIST MADE AND REQUESTED AN ABG AND HEAT HIGH FLOW OXYGEN. ORDERS APPROVED AND RESPIRATORY NOTIFIED. PATIENT'S OXYGEN LEVELS IMPROVED TO 93-95% WITH THIS.
[2020-08-28] MEDS: ipratropium-albuterol 3 mL Neb INHALATION ×3 (08:15→20:58)
[2020-08-28] MEDS: lamoTRIgine 100 mg Tablet 200 MG PO (09:02)
[2020-08-28] MEDS: BuSPIRONE 10 mg Tablet 20 MG PO ×2 (09:03→17:50)
[2020-08-28] MEDS: zinc gluconate 50 mg Tablet PO (09:03)
[2020-08-28] MEDS: dexamethasone 4 mg Tablet 6 MG PO (09:03)
[2020-08-28] MEDS: dilTIAZem 60 mg Tablet PO ×2 (09:03→17:50)
[2020-08-28] MEDS: ascorbic acid 500 mg Tablet PO (09:04)
[2020-08-28] MEDS: atorvastatin 40 mg Tablet PO (09:04)
[2020-08-28] MEDS: metoprolol tartrate 50 mg Tablet 25 MG PO ×2 (09:04→17:52)
[2020-08-28] MEDS: venlafaxine 75 mg Tablet PO (10:23)
[2020-08-28 14:16] LABS: ABG PCO2 34.6 mmHg (35-45); ABG PH Result 7.37 (7.35-7.45); Alveolar-Arterial Oxygen Gradi 5.7 mmHg (5-10); Arterial Blood Gas Hematocrit 45.9 % (42-52); Base Excess ABG -4.3 mmol/L (-2.0-2.0); Blood Gas Allen Test Pos; Blood Gas Operator Identificat HARKR; Blood Gas Sample Site Radial, left; Blood Gas Sample Type Arterial; Carboxyhemoglobin 0.8 %THgb (0.4-20.1); HCO3 ABG 20.1 mmol/L (22-26); HGB O2 Sat 91.7 % (95-100); Ionized Calcium Level - ABG 1.1 mmol/L (1.1-1.4); Methemoglobin 0.8 % (0.4-1.5); Oxygen Device NRB; Oxygen Saturation ABG 93.2; PO2 ABG 63.8 mmHg (80.0-100.0)
[2020-08-28] MEDS: aspirin 81 mg EC Tablet PO (17:49)
[2020-08-28] MEDS: warfarin 3 mg Tablet 6 MG PO (17:50)
[2020-08-28] MEDS: zonisamide 100 MG Capsule 200 MG PO (17:50)
--- NOTE | 2020-08-28 19:48 | P.PN_ITS ---
Subjective Subjective: Interval history: Patient was seen and examined today. He was seen comfortably resting in bed, but he is complaining of pain on inspiration, as well as cough, as well as difficulty with swallowing food. His vitals and labs have been reviewed. Medications: Reviewed: Yes Vitals/I&O/Wt Last Vital Signs Temp 98.1 F 08/28/20 15:27 Pulse 77 08/28/20 15:28 Resp 24 H 08/28/20 15:28 BP 109/69 08/28/20 15:27 Pulse Ox 90 08/28/20 15:28 08/28/20 08/28/20 08/28/20 06:59 14:59 22:59 Intake Total 100 / 100 600 / 600 240 / 840 Output Total 450 / 450 Balance 100 / 100 150 / 150 240 / 390 Weight last 48 hrs Weight 126.189 kg Weight 126.155 kg Physical Exam Const: COMMON NORMALS: patient oriented x3 HENMT: COMMON NORMALS: normocephalic and atraumatic HEAD & SCALP: normocephalic and atraumatic Chest: OTHER: Resp: COMMON NORMALS: normal respiratory effort, No retractions and No use of accessory muscles EFFORT & INSPECTION: Yes symmetric chest movement OTHER: Diminished air entry B/L ,No whezzing, no ronchii, no rales. Cardio: COMMON NORMALS: regular rate, regular rhythm, S1 normal heart sound present, S2 normal heart sound present, No gallops present (Cardio), No murmurs present (Cardio), No rub (Cardio) and Peripheral pulses 2+ throughout RATE: regular rate RHYTHM: regular rhythm HEART SOUNDS: S1 normal heart sound present and S2 normal heart sound present PERIPHERAL PULSES: Peripheral pulses 2+ throughout GI: COMMON NORMALS: Normal to inspection, nondistended, normoactive bowel sounds present, Soft to palpation, non-tender, No hepatosplenomegaly present and no masses AUSCULTATION: Yes normoactive bowel sounds PALPATION: Yes Soft to palpation and Yes No hepatosplenomegaly present RECTAL EXAM: Yes deferred Extremity: COMMON NORMALS: no clubbing, cyanosis or edema and no pedal edema Neuro: COMMON NORMALS: patient oriented x3 Data : 08/28/20 05:10 08/28/20 05:10 A&P Assessment and plan (1) Acute respiratory failure with hypoxia: COVID-19 tested positive on 08/24 Decadron 6 mg I.V daily for 10 days Remdesivir 200 mg IV x1 dose - > 100 mg IV daily x 4 days Vitamin C 500 mg po daily Zinc 50 mg po daily Duo Nebs Robutasssin DM PRN for cough Levaquin 750 mg IV daily ( 08/28 ) On HHFONC 55 % and 35Ls On Warfarin as home medication Pro-calcitonin :0.23 Ferritin : CRP:63.9 D-dimer: 0.54 Monitor Serial chest x-ray: Monitor ABG:Ph: 7.37, PCO2: 34. PO2: 63 ON 15 Ls Fio2 Airborne/droplet precautions Status: Acute (2) COVID-19: Symptoms started 3 days before he tested positive for COVID-19 pneumonia on 08/24 Management as mentioned above Status: Acute Additional A&P Information Mechanical aortic valve: INR:1.59 , Pharmacy consult to dose Coumadin dose and Monitor INR Target INR 2.5-3.5 History of migraines: No acute decompensation Cardiac diet Full code DVT prophylaxis not indicated because of Coumadin usage Attestations Medical Necessity Statement*: Patient needs to be in hospital for the management of Respiratory failure 2/2 to COVID PNA Coding Level of Care Code Acute Satellite Project Site Monitor for [facility] Fwd Exam Detailed Diagnoses Acute respiratory failure with hypoxia J96.01 COVID-19 U07.1
[2020-08-28] MEDS: trazodone 150 mg Tablet 300 MG PO (21:01)
[2020-08-28] MEDS: levofloxacin-dextrose 5 % 750 MG/150 ML PREMIX 100 MG IV (21:02)
--- NOTE | 2020-08-28 23:29 | PC.NURSE ---
Accucheck not crossing over to [place]. Pt's glucose noted to be 170.
[2020-08-29] VITALS (15 sets, daily range): BP systolic 92–133; BP diastolic 55–89; PULSE 58–90; RESP 16–20; TEMP 36.3–37.2; O2SAT 85–98
[2020-08-29 06:09] LABS: Hematocrit 42.5 % (42.0-52.0); Hemoglobin 14.3 g/dL (11.7-16.6); Lymphocytes # 0.6 10^3/uL (0.8-4.8); Mean Corpuscular HGB Conc 33.6 g/dL (30.0-36.0); Mean Corpuscular Hemoglobin 30.5 pg (28.0-34.0); Mean Corpuscular Volume 90.6 fL (80-94); Mean Platelet Volume 11.1 fL (7.4-10.4); Monocytes # 0.5 10^3/uL (0.2-0.9); Monocytes % 5.9 %; Neutrophils # 7.48 10^3/uL (1.8-7.7); Neutrophils % 86.8 %; Nucleated Red Blood Cells % 0 %; Platelet Count 201 10^3/cmm (130-400); Red Blood Count 4.69 10^6/uL (4.1-5.3); Red Cell Distribution Width 12.7 % (12.1-15.1); White Blood Count 8.6 10^3/uL (4.0-10.0)
[2020-08-29 06:22] LABS: INR 2.12 (0.8-1.2)
[2020-08-29 06:42] LABS: Alanine Aminotransferase 27 U/L (0-41); Albumin Level 3.6 g/dL (3.5-5.2); Alkaline Phosphatase 62 IU/L (40-130); Anion Gap 13.7 (5-19); Aspartate Amino Transferase 34 U/L (0-40); Blood Urea Nitrogen 21 mg/dL (6-20); Calcium 8.6 mg/dL (8.5-10.5); Carbon Dioxide 23 mmol/L (22-29); Chloride 104 mmol/L (98-107); Globulin 2.7 g/dL (1.3-4.6); Glomerular Filtration Rate 116.7 mL/min (90-130); Glucose 140 mg/dL (65-115); Osmolality Calculated 289 mOsm/kg (285-295); Potassium 3.7 mmol/L (3.5-5.1); Sodium 137 mmol/L (136-145); Total Bilirubin 0.4 mg/dL (0.15-1.2); Total Protein 6.3 g/dL (6.6-8.7)
[2020-08-29] MEDS: ipratropium-albuterol 3 mL Neb INHALATION ×4 (08:20→20:46)
[2020-08-29] MEDS: remdesivir 100 MG in sodium chloride 0.9% (100 ml) 100 ML IV (09:37)
[2020-08-29] MEDS: ascorbic acid 500 mg Tablet PO (09:39)
[2020-08-29] MEDS: zonisamide 100 MG Capsule 200 MG PO ×2 (09:39→18:19)
[2020-08-29] MEDS: zinc gluconate 50 mg Tablet PO (09:40)
[2020-08-29] MEDS: BuSPIRONE 10 mg Tablet 20 MG PO ×2 (09:40→18:19)
[2020-08-29] MEDS: lamoTRIgine 100 mg Tablet 200 MG PO (09:40)
[2020-08-29] MEDS: venlafaxine 75 mg Tablet PO (09:40)
[2020-08-29] MEDS: atorvastatin 40 mg Tablet PO (09:40)
[2020-08-29] MEDS: dilTIAZem 60 mg Tablet PO ×2 (09:40→18:55)
[2020-08-29] MEDS: dexamethasone 4 mg/mL INJ 6 MG IVP (09:41)
[2020-08-29] MEDS: metoprolol tartrate 50 mg Tablet 25 MG PO ×2 (09:42→18:18)
--- NOTE | 2020-08-29 13:41 | P.PN_ITS ---
Subjective Subjective: Interval history: Patient was seen and examined this morning, shortness of breath has not worsened, though is still complaining of cough, as well as chest pain with inspiration. Supplemental oxygen requirement has gone up, currently requiring 65% FiO2 at 45 L/min. He has remained afebrile. His other vitals and labs have been reviewed. Medications: Reviewed: Yes Vitals/I&O/Wt Last Vital Signs Temp 97.3 F L 08/29/20 07:34 Pulse 83 08/29/20 11:22 Resp 18 08/29/20 11:22 BP 109/60 08/29/20 07:34 Pulse Ox 89 L 08/29/20 11:22 08/28/20 08/29/20 08/29/20 22:59 06:59 14:59 Intake Total 390 / 990 Balance 390 / 540 Weight last 48 hrs Weight 126.189 kg Weight 126.155 kg Physical Exam Const: COMMON NORMALS: patient oriented x3 HENMT: COMMON NORMALS: normocephalic and atraumatic HEAD & SCALP: normocephalic and atraumatic Chest: OTHER: Resp: COMMON NORMALS: normal respiratory effort, No retractions and No use of accessory muscles EFFORT & INSPECTION: Yes symmetric chest movement OTHER: Diminished air entry B/L ,No whezzing, no ronchii, no rales. Cardio: COMMON NORMALS: regular rate, regular rhythm, S1 normal heart sound present, S2 normal heart sound present, No gallops present (Cardio), No murmurs present (Cardio), No rub (Cardio) and Peripheral pulses 2+ throughout RATE: regular rate RHYTHM: regular rhythm HEART SOUNDS: S1 normal heart sound present and S2 normal heart sound present PERIPHERAL PULSES: Peripheral pulses 2+ throughout GI: COMMON NORMALS: Normal to inspection, nondistended, normoactive bowel sounds present, Soft to palpation, non-tender, No hepatosplenomegaly present and no masses AUSCULTATION: Yes normoactive bowel sounds PALPATION: Yes Soft to palpation and Yes No hepatosplenomegaly present RECTAL EXAM: Yes deferred Extremity: COMMON NORMALS: no clubbing, cyanosis or edema and no pedal edema Neuro: COMMON NORMALS: patient oriented x3 Data : 08/29/20 05:43 08/29/20 05:43 A&P Assessment and plan (1) Acute respiratory failure with hypoxia: COVID-19 tested positive on 08/24 Decadron 6 mg I.V daily for 10 days Remdesivir 200 mg IV x1 dose - > 100 mg IV daily x 4 days Vitamin C 500 mg po daily Zinc 50 mg po daily Duo Nebs Robutasssin DM PRN for cough Levaquin 750 mg IV daily ( 08/28 ) On HHFONC 65 % and 45Ls On Warfarin as home medication Lasix as needed Pro-calcitonin :0.23 Ferritin : CRP:63.9 D-dimer: 0.54 Monitor Serial chest x-ray: Monitor ABG:Ph: 7.37, PCO2: 34. PO2: 63 ON 15 Ls Fio2 Airborne/droplet precautions Status: Acute (2) COVID-19: Symptoms started 3 days before he tested positive for COVID-19 pneumonia on 08/24 Management as mentioned above Status: Acute Additional A&P Information Mechanical aortic valve: INR:1.59 , Pharmacy consult to dose Coumadin dose and Monitor INR Target INR 2.5-3.5 History of migraines: No acute decompensation Cardiac diet Full code DVT prophylaxis not indicated because of Coumadin usage Attestations Medical Necessity Statement*: Needs to be in hospital for management of respiratory failure secondary to Covid PNA Coding Level of Care 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
[2020-08-29] MEDS: aspirin 81 mg EC Tablet PO (18:18)
[2020-08-29] MEDS: warfarin 3 mg Tablet 6 MG PO (18:19)
[2020-08-29] MEDS: FUROsemide 10 mg/mL SDV 4mL 40 MG IVP (18:21)
[2020-08-29] MEDS: levofloxacin-dextrose 5 % 750 MG/150 ML PREMIX 100 MG IV (21:44)
[2020-08-29] MEDS: trazodone 150 mg Tablet 300 MG PO (21:47)
[2020-08-30] VITALS (107 sets, daily range): BP systolic 95–131; BP diastolic 53–85; PULSE 74–101; RESP 14–37; TEMP 35.7–37; O2SAT 79–97
--- NOTE | 2020-08-30 00:30 | PC.NURSE ---
Patient is upset because he needs to wear the BI-PAP because his oxygen is dropping to 82% on heated high flow while he sleeps. Patient refused vital signs at this time.
--- NOTE | 2020-08-30 00:50 | XRR_ITS ---
PROCEDURE INFORMATION: Exam: XR Chest, 1 View Exam date and time: 08/30/2020 1:02 AM Age: 54 years old Clinical indication: Shortness of breath; Prior surgery; Surgery type: Aortic valve; Patient HX: Worsening SOB. Covid +. TECHNIQUE: Imaging protocol: XR of the chest Views: 1 view. COMPARISON: DX Chest 1 view [id number] 08/27/2020 10:18 PM FINDINGS: Lungs: New perihilar infiltrates are seen on the right and there is increase in left-sided infiltrates. Components of interstitial thickening are suspected at lower chest that may relate to some edema or congestion. Pleural spaces: Unremarkable. No pleural effusion. No pneumothorax. Heart/Mediastinum: Unremarkable. No cardiomegaly. Bones/joints: Sternotomy wires are in place. XR/XR chest 1V portable [id number] IMPRESSION: New right-sided infiltrates and increase in left-sided infiltrates that can represent edema or infectious/inflammatory process. The distribution of infiltrates would somewhat favor edema and components of mild interstitial thickening relating to edema or congestion are also suspected but clinical correlation is needed.
[2020-08-30] MEDS: ipratropium-albuterol 3 mL Neb INHALATION ×4 (04:04→19:57)
[2020-08-30 06:20] LABS: Basophils % 0.1 %; Hemoglobin 13.6 g/dL (11.7-16.6); Lymphocytes # 0.5 10^3/uL (0.8-4.8); Lymphocytes % 7.7 %; Mean Corpuscular Hemoglobin 30.8 pg (28.0-34.0); Mean Corpuscular Volume 90.5 fL (80-94); Mean Platelet Volume 10.8 fL (7.4-10.4); Monocytes # 0.5 10^3/uL (0.2-0.9); Monocytes % 7.7 %; Neutrophils # 5.66 10^3/uL (1.8-7.7); Neutrophils % 83.9 %; Nucleated Red Blood Cells % 0 %; Platelet Count 228 10^3/cmm (130-400); Red Blood Count 4.42 10^6/uL (4.1-5.3); Red Cell Distribution Width 12.7 % (12.1-15.1); White Blood Count 6.8 10^3/uL (4.0-10.0)
--- NOTE | 2020-08-30 07:00 | PC.NURSE ---
Report to Janina DIXON
[2020-08-30 07:13] LABS: Alanine Aminotransferase 23 U/L (0-41); Albumin Level 3.5 g/dL (3.5-5.2); Alkaline Phosphatase 64 IU/L (40-130); Anion Gap 13.2 (5-19); Aspartate Amino Transferase 31 U/L (0-40); Blood Urea Nitrogen 20 mg/dL (6-20); Calcium 8.6 mg/dL (8.5-10.5); Carbon Dioxide 24 mmol/L (22-29); Chloride 103 mmol/L (98-107); Globulin 2.6 g/dL (1.3-4.6); Glucose 136 mg/dL (65-115); Osmolality Calculated 289 mOsm/kg (285-295); Potassium 3.2 mmol/L (3.5-5.1); Sodium 137 mmol/L (136-145); Total Bilirubin 0.4 mg/dL (0.15-1.2); Total Protein 6.1 g/dL (6.6-8.7)
[2020-08-30 07:16] LABS: INR 2.59 (0.8-1.2)
--- NOTE | 2020-08-30 08:00 | CTR_ITS ---
PROCEDURE INFORMATION: Exam: CT Angiography Chest With Contrast Exam date and time: 08/30/2020 9:37 AM Age: 54 years old Clinical indication: Abnormal findings; Abnormal diagnostic tests; Elevated d-dimer; Prior surgery; Surgery date: 6+ months; Surgery type: Valve; Patient HX: Covid+ w elev d-dimer; Additional info: Rule out pe TECHNIQUE: Imaging protocol: Computed tomographic angiography of the chest with contrast. 3D rendering (Not supervised by radiologist): MIP and/or 3D reconstructed images were created by the technologist. Total images: 935 Radiation optimization: All CT scans at this facility use at least one of these dose optimization techniques: automated exposure control; mA and/or kV adjustment per patient size (includes targeted exams where dose is matched to clinical indication); or iterative reconstruction. Contrast material: OMNI 350; Contrast volume: 73 ml; Contrast route: INTRAVENOUS (IV); COMPARISON: CR XR chest 1V portable [id number] 08/30/2020 1:04 AM RADIATION DOSE METRICS: Total DLP (mGy-cm): 594.66 FINDINGS: Pulmonary arteries: Suboptimal pulmonary arterial contrast enhancement. No grossly visible central pulmonary embolism/pulmonary arterial thrombus. Aorta: The thoracic aorta is nonaneurysmal. No visible intimal flap or dissection. Bovine aortic arch which is a normal anatomical variant. Lungs: Moderately advanced centrilobular and panlobular emphysema. 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 Early consolidation with crazy paving appearance. Few air bronchograms. Overall presentation would be consistent with Covid-19 pneumonitis/pneumonia. Pleural spaces: Unremarkable. No pneumothorax. No pleural effusion. Heart: Status post sternotomy chest and aortic valve prosthesis. Mild coronary artery disease. No cardiomegaly. No visible pericardial effusion. Mediastinal space: Small hiatal hernia. Lymph nodes: Marginally prominent mediastinal and hilar lymph nodes most likely reactive. Calcified complexes of antecedent granulomatous disease. Liver: Advanced diffuse fatty infiltration of the liver with a 23 mm left hepatic lobe cyst. Gallbladder and bile ducts: Partial hepatization of the gallbladder. No visible form cholelithiasis. Spleen: Splenic calcified granulomas of antecedent disease with evidence of splenomegaly. Adrenal glands: Adrenal glands unremarkable. Kidneys and ureters: Simple appearing cortical cyst superior pole right kidney measuring 6.9 cm. No follow-up recommended. Bones/joints: No visible active or acute osseous pathology. Soft tissues: Heavy body habitus. CT/CT angio chest PE protcl [id number] IMPRESSION: 1. Suboptimal pulmonary arterial contrast enhancement. No grossly visible central pulmonary embolism/pulmonary arterial thrombus. 2. Bilateral pneumonitis/pneumonia. Overall presentation consideration might be given to Covid-19 pneumonitis/pneumonia. 3. Marginally prominent mediastinal and hilar lymph nodes most likely reactive. 4. Antecedent granulomatous disease. 5. Other nonurgent/nonemergent related findings as detailed in text above. COMMENTS: Consistent with the [employer]'s Incidental Findings Committee white paper (J Am Demetrio Radiol 2018): Any incidental renal lesion less than 1 cm or classified as too small to characterize, or any incidental cystic renal lesion characterized as simple-appearing, is likely benign. No follow-up imaging is recommended for these lesions per consensus recommendations based on imaging criteria. Radiation Dose CTDIVOL = (mGy): DLP = 594.66 (mGy-cm)
[2020-08-30] MEDS: remdesivir 100 MG in sodium chloride 0.9% (100 ml) 100 ML IV (08:59)
[2020-08-30] MEDS: potassium chloride ER 20 mEq Tablet 40 MEQ PO (09:00)
[2020-08-30] MEDS: venlafaxine 75 mg Tablet PO (09:00)
[2020-08-30] MEDS: dilTIAZem 60 mg Tablet PO ×2 (09:00→17:58)
[2020-08-30 09:02] LABS: Erythrocyte Sedimentation Rate 28 mm/hr (0-10)
[2020-08-30] MEDS: BuSPIRONE 10 mg Tablet 20 MG PO ×2 (09:02→17:58)
[2020-08-30] MEDS: zinc gluconate 50 mg Tablet PO (09:02)
[2020-08-30] MEDS: lamoTRIgine 100 mg Tablet 200 MG PO (09:02)
[2020-08-30] MEDS: ascorbic acid 500 mg Tablet PO (09:02)
[2020-08-30] MEDS: zonisamide 100 MG Capsule 200 MG PO ×2 (09:03→18:22)
[2020-08-30] MEDS: atorvastatin 40 mg Tablet PO (09:03)
[2020-08-30] MEDS: metoprolol tartrate 50 mg Tablet 25 MG PO ×2 (09:12→17:57)
[2020-08-30] MEDS: FUROsemide 10 mg/mL SDV 4mL 40 MG IVP (09:17)
[2020-08-30] MEDS: dexamethasone 4 mg/mL INJ 6 MG IVP (09:17)
[2020-08-30 11:15] LABS: C Reactive Protein 39.2 mg/L (0.0-4.9)
[2020-08-30 11:46] LABS: Ferritin 2056 ng/mL (30-400)
[2020-08-30] MEDS: iohexol 350 mg/mL 100 mL Btl IV (14:36)
--- NOTE | 2020-08-30 14:49 | P.PN_ITS ---
Subjective Subjective: Interval history: In the last 24hrs, patient supplemental oxygen requirement has gone up.Patient continues to be in happy hypoxemia phase. His deny any worsening shortness of breath since yesterday.He has remained afebrile. His other vitals and labs have been reviewed. Given his high supplemental oxygen requirement he has been moved to ICU for close monitoring Medications: Reviewed: Yes Vitals/I&O/Wt Last Vital Signs Temp 96.2 F L 08/30/20 07:20 Pulse 91 08/30/20 11:30 Resp 22 H 08/30/20 11:30 BP 131/74 08/30/20 09:11 Pulse Ox 89 L 08/30/20 11:30 08/29/20 08/30/20 08/30/20 22:59 06:59 14:59 Intake Total 150 / 730 460 / 460 Output Total 600 / 600 950 / 1550 Balance -600 / -20 -800 / -820 460 / 460 Physical Exam Const: COMMON NORMALS: patient oriented x3 HENMT: COMMON NORMALS: normocephalic and atraumatic HEAD & SCALP: normocephalic and atraumatic Chest: OTHER: Resp: COMMON NORMALS: normal respiratory effort, No retractions and No use of accessory muscles EFFORT & INSPECTION: Yes symmetric chest movement OTHER: Diminished air entry B/L ,No whezzing, no ronchii, no rales. Cardio: COMMON NORMALS: regular rate, regular rhythm, S1 normal heart sound present, S2 normal heart sound present, No gallops present (Cardio), No murmurs present (Cardio), No rub (Cardio) and Peripheral pulses 2+ throughout RATE: regular rate RHYTHM: regular rhythm HEART SOUNDS: S1 normal heart sound present and S2 normal heart sound present PERIPHERAL PULSES: Peripheral pulses 2+ throughout GI: COMMON NORMALS: Normal to inspection, nondistended, normoactive bowel sounds present, Soft to palpation, non-tender, No hepatosplenomegaly present and no masses AUSCULTATION: Yes normoactive bowel sounds PALPATION: Yes Soft to palpation and Yes No hepatosplenomegaly present RECTAL EXAM: Yes deferred Extremity: COMMON NORMALS: no clubbing, cyanosis or edema and no pedal edema Neuro: COMMON NORMALS: patient oriented x3 Data : 08/30/20 05:25 08/30/20 05:25 A&P Assessment and plan (1) Acute respiratory failure with hypoxia: COVID-19 tested positive on 08/24 Decadron 6 mg I.V daily for 10 days Remdesivir 200 mg IV x1 dose - > 100 mg IV daily x 4 days Vitamin C 500 mg po daily Zinc 50 mg po daily Duo Nebs Robutasssin DM PRN for cough Levaquin 750 mg IV daily ( 08/28 ) On HHFONC 85 % and 45Ls On Warfarin as home medication Lasix as needed Pro-calcitonin :0.23 Ferritin : CRP:63.9 D-dimer: 0.54 CTA chest : No grossly visible central pulmonary embolism/pulmonary arterial thrombus. Diffuse ground-glass interstitial lung disease of active interstitial pneumonit is, right lung more involved than left. Early consolidation with crazy paving appearance. Few air bronchograms. 2D Echo : Monitor Serial chest x-ray: Monitor ABG:Ph: 7.37, PCO2: 34. PO2: 63 ON 15 Ls Fio2 Airborne/droplet precautions Status: Acute (2) COVID-19: Symptoms started 3 days before he tested positive for COVID-19 pneumonia on 08/24 Management as mentioned above Status: Acute Additional A&P Information Mechanical aortic valve: INR:1.59 , Pharmacy consult to dose Coumadin dose and Monitor INR Target INR 2.5-3.5 History of migraines: No acute decompensation Cardiac diet Full code DVT prophylaxis not indicated because of Coumadin usage Attestations 2 Medical Necessity Statement*: Patient needs to be in hospital for management of respiratory failure secondary to Covid pneumonia. 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
--- NOTE | 2020-08-30 15:50 | PC.NURSE ---
1400 rhythm assessment: pr: 0.16 qrs: 0.08 qt: 0.36 NSR strip posted in paper chart
[2020-08-30] MEDS: aspirin 81 mg EC Tablet PO (17:57)
[2020-08-30] MEDS: warfarin 3 mg Tablet 6 MG PO (18:23)
[2020-08-30] MEDS: levofloxacin-dextrose 5 % 750 MG/150 ML PREMIX 100 MG IV (20:42)
[2020-08-30] MEDS: trazodone 150 mg Tablet 300 MG PO (20:45)
[2020-08-31] VITALS (296 sets, daily range): BP systolic 83–145; BP diastolic 47–91; PULSE 71–111; RESP 12–44; TEMP 36.4–37.1; O2SAT 67–97
[2020-08-31] MEDS: LORazepam 2 mg/mL INJ 1 mL 0.25 MG IVP (01:08)
[2020-08-31 03:46] LABS: ABG PCO2 38.5 mmHg (35-45); ABG PH Result 7.42 (7.35-7.45); Alveolar-Arterial Oxygen Gradi 76.6 mmHg (5-10); Base Excess ABG 0.6 mmol/L (-2.0-2.0); Blood Gas Allen Test Pos; Blood Gas Sample Site Radial, right; Blood Gas Sample Type Arterial; Carboxyhemoglobin 0.6 %THgb (0.4-20.1); Ionized Calcium Level - ABG 1.2 mmol/L (1.1-1.4); Methemoglobin 0.8 % (0.4-1.5); Oxygen Device BIPAP; Oxygen Saturation ABG 96.3; PO2 ABG 78.6 mmHg (80.0-100.0); Potassium Level - ABG 3.7 mmol/L (3.5-5.0)
[2020-08-31 04:40] LABS: Basophils % 0.1 %; Eosinophils % 0.1 %; Hemoglobin 14.2 g/dL (11.7-16.6); Lymphocytes # 0.6 10^3/uL (0.8-4.8); Lymphocytes % 7.2 %; Mean Corpuscular HGB Conc 33.8 g/dL (30.0-36.0); Mean Corpuscular Hemoglobin 30.8 pg (28.0-34.0); Mean Corpuscular Volume 91.1 fL (80-94); Mean Platelet Volume 10.4 fL (7.4-10.4); Monocytes # 0.6 10^3/uL (0.2-0.9); Monocytes % 6.9 %; Neutrophils # 7.51 10^3/uL (1.8-7.7); Neutrophils % 84.9 %; Nucleated Red Blood Cells % 0 %; Platelet Count 261 10^3/cmm (130-400); Red Blood Count 4.61 10^6/uL (4.1-5.3); Red Cell Distribution Width 12.7 % (12.1-15.1); White Blood Count 8.9 10^3/uL (4.0-10.0)
[2020-08-31 04:54] LABS: INR 2.98 (0.8-1.2)
[2020-08-31 04:57] LABS: D Dimer 1.16 ug/mIFEU (0-0.59)
[2020-08-31 05:06] LABS: Alanine Aminotransferase 26 U/L (0-41); Albumin Level 3.3 g/dL (3.5-5.2); Alkaline Phosphatase 67 IU/L (40-130); Blood Urea Nitrogen 20 mg/dL (6-20); C Reactive Protein 44.7 mg/L (0.0-4.9); Calcium 8.7 mg/dL (8.5-10.5); Carbon Dioxide 21 mmol/L (22-29); Chloride 104 mmol/L (98-107); Globulin 3.1 g/dL (1.3-4.6); Glomerular Filtration Rate 116.7 mL/min (90-130); Glucose 126 mg/dL (65-115); Osmolality Calculated 288 mOsm/kg (285-295); Sodium 137 mmol/L (136-145); Total Bilirubin 0.5 mg/dL (0.15-1.2); Total Protein 6.4 g/dL (6.6-8.7)
[2020-08-31] MEDS: LORazepam 0.5 mg Tablet 0.25 MG PO (05:18)
[2020-08-31 05:21] LABS: Anion Gap 16.1 (5-19); Aspartate Amino Transferase 35 U/L (0-40); Potassium 4.1 mmol/L (3.5-5.1)
[2020-08-31] MEDS: remdesivir 100 MG in sodium chloride 0.9% (100 ml) 100 ML IV (06:16)
[2020-08-31 06:29] LABS: Erythrocyte Sedimentation Rate 94 mm/hr (0-10)
[2020-08-31] MEDS: BuSPIRONE 10 mg Tablet 20 MG PO ×2 (08:00→17:23)
[2020-08-31] MEDS: FUROsemide 10 mg/mL SDV 4mL 40 MG IVP ×2 (08:00→16:38)
[2020-08-31] MEDS: dexamethasone 4 mg/mL INJ 6 MG IVP (08:00)
[2020-08-31] MEDS: dilTIAZem 60 mg Tablet PO ×2 (08:01→17:23)
[2020-08-31] MEDS: ascorbic acid 500 mg Tablet PO (08:01)
[2020-08-31] MEDS: venlafaxine 75 mg Tablet PO (08:01)
[2020-08-31] MEDS: lamoTRIgine 100 mg Tablet 200 MG PO (08:01)
[2020-08-31] MEDS: atorvastatin 40 mg Tablet PO (08:01)
[2020-08-31] MEDS: metoprolol tartrate 50 mg Tablet 25 MG PO ×2 (08:01→17:23)
[2020-08-31] MEDS: zinc gluconate 50 mg Tablet PO (08:01)
[2020-08-31] MEDS: potassium chloride ER 20 mEq Tablet 40 MEQ PO (08:02)
[2020-08-31] MEDS: zonisamide 100 MG Capsule 200 MG PO ×2 (08:03→17:23)
--- NOTE | 2020-08-31 08:13 | PC.RESP ---
Therapist tried to put patient on Heated High flow at this time. patient did not tolerate it. sats dropped to 80% on 60L 100%. patient was switched back to bipap of 06/17 85%. sats are 93% HR 97 and RR 20
[2020-08-31] MEDS: ipratropium-albuterol 3 mL Neb INHALATION ×4 (08:15→19:48)
[2020-08-31 08:26] LABS: Glucose Point of Care 123 mg/dL (70-110)
--- NOTE | 2020-08-31 08:53 | USCV_ITS ---
Parker Theodore Age: 54 Gender: M : 1965 Exam Date: 08/31/2020 12:45 Ordering Phys: Saurav Ni MD Technologist: Cristy Javier Exam Location: [facility] [place] Indication: SOB BP: 124 / 68 HR: 82 Rhythm: Sinus Technical Quality: Technically difficult study MEASUREMENTS (Male / Female) Normal Values 2D ECHO LV Diastolic Diameter PLAX 3.8 cm 4.2 - 5.9 / 3.9 - 5.3 cm LV Systolic Diameter PLAX 2.5 cm LV Chamber Size 3.9 cm IVS Diastolic Thickness 1.7 cm 0.6 - 1.0 / 0.6 - 0.9 cm IVS Systolic Thickness 1.8 cm LVPW Diastolic Thickness 1.4 cm 0.6 - 1.0 / 0.6 - 0.9 cm LVPW Systolic Thickness 1.9 cm RV Chamber Size 2.9 cm LVOT Diameter 2.0 cm LV Ejection Fraction 2D Teich 64.6 % LA Diameter 4.2 cm LA Width 2.5 cm LA Height 5.7 cm RA Width 2.8 cm RA Height 5.4 cm Aorta at Sinotubular Diameter 2.1 cm M-MODE LV Diastolic Diameter MM 5.6 cm 4.2 - 5.9 / 3.9 - 5.3 cm LV Systolic Diameter MM 3.6 cm LV Ejection Fraction MM Teich 64.9 % IVS Diastolic Thickness MM 1.2 cm 0.6 - 1.0 / 0.6 - 0.9 cm IVS Systolic Thickness MM 1.6 cm LVPW Diastolic Thickness MM 1.7 cm 0.6 - 1.0 / 0.6 - 0.9 cm LVPW Systolic Thickness MM 2.4 cm RV Diastolic Diameter MM 1.7 cm Aortic Annulus Diameter 3.6 cm LA Ao Ratio MM 1.2 DOPPLER AV Peak Velocity 178.4 cm/s LVOT Peak Velocity 95.0 cm/s AV Area Cont Eq vti 1.9 cm squared AV Area Cont Eq pk 1.6 cm squared MV Area PHT 3.9 cm squared Mitral E to A Ratio 1.0 MV E' Velocity 35.0 cm/s Mitral E to MV E' Ratio 7.8 Mitral E to LV E' Lateral Ratio 7.4 Mitral E to LV E' Septal Ratio 8.3 TV Peak E Velocity 46.0 cm/s Right Atrial Pressure 3.0 mmHg PV Peak Velocity 87.0 cm/s RV Acceleration Time 0.1 s RV Ejection Time 0.2 s RV AcT/ET 0.4 FINDINGS Left Ventricle Normal left ventricle size and systolic function. Left ventricular ejection fraction is estimated at 60 %. There is possible hypokinesis of basal inferoseptal wall. Normal diastolic function. Right Ventricle Normal right ventricular size and systolic function. Right Atrium Normal right atrial size. Left Atrium Left atrium not well visualized. Possibly normal left atrial size. Mitral Valve Mitral valve not well visualized. No mitral valve stenosis. No mitral valve regurgitation. Aortic Valve Aortic valve not well visualized. No aortic valve stenosis. Tricuspid Valve Tricuspid valve not well visualized. Pulmonic Valve Pulmonic valve not well visualized. Pericardium No pericardial effusion. Aorta Aorta not well visualized. CONCLUSIONS 1. This is a technically very difficult study. 2. Normal left ventricle size and systolic function. Left ventricular ejection fraction is estimated at 60 %. There is possible hypokinesis of basal inferoseptal wall. Normal diastolic function. 3. Repeat study with echo contrast is recommended. Jailyn Renee MD (Electronically Signed) Final Date: 31 August 2020 18:32 S
[2020-08-31 11:09] LABS: Ferritin 1929 ng/mL (30-400)
[2020-08-31 11:36] LABS: Glucose Point of Care 150 mg/dL (70-110)
--- NOTE | 2020-08-31 12:47 | PC.NURSE ---
Patient has been resting in bed this shift. Patient is on bipap with sats around 90%. Patient was taken off bipap this AM to take medications and oxygen sats dropped in high 60's. Dr. recinos.
--- NOTE | 2020-08-31 15:31 | PM.PN ---
Subjective Subjective: Interval history: Patient was seen and examined this morning. His supplemental oxygen continues to remain high, though he has been able to maintain his saturation above 85%, on BiPAP ( 06/17 @ fi02 : 85%) as well as on heated high flow oxygen through nasal. The prospect of intubating the patient was discussed this morning, and patient agrees to be intubated once it is needed. Patient has remained afebrile.His other vitals and labs have been reviewed. Medications: Reviewed: Yes Vitals/I&O/Wt Last Vital Signs Temp 97.6 F 08/31/20 09:20 Pulse 83 08/31/20 14:00 Resp 29 H 08/31/20 14:00 BP 102/47 08/31/20 14:00 Pulse Ox 92 08/31/20 14:00 08/31/20 08/31/20 08/31/20 06:59 14:59 22:59 Intake Total 500 / 1860 200 / 200 Output Total 600 / 1200 1375 / 1375 Balance -100 / 660 -1175 / -1175 Physical Exam Const: COMMON NORMALS: patient oriented x3 HENMT: COMMON NORMALS: normocephalic and atraumatic HEAD & SCALP: normocephalic and atraumatic Chest: OTHER: Resp: COMMON NORMALS: normal respiratory effort, No retractions and No use of accessory muscles EFFORT & INSPECTION: Yes symmetric chest movement OTHER: Diminished air entry B/L ,No whezzing, no ronchii, no rales. Cardio: COMMON NORMALS: regular rate, regular rhythm, S1 normal heart sound present, S2 normal heart sound present, No gallops present (Cardio), No murmurs present (Cardio), No rub (Cardio) and Peripheral pulses 2+ throughout RATE: regular rate RHYTHM: regular rhythm HEART SOUNDS: S1 normal heart sound present and S2 normal heart sound present PERIPHERAL PULSES: Peripheral pulses 2+ throughout GI: COMMON NORMALS: Normal to inspection, nondistended, normoactive bowel sounds present, Soft to palpation, non-tender, No hepatosplenomegaly present and no masses AUSCULTATION: Yes normoactive bowel sounds PALPATION: Yes Soft to palpation and Yes No hepatosplenomegaly present RECTAL EXAM: Yes deferred Extremity: COMMON NORMALS: no clubbing, cyanosis or edema and no pedal edema Neuro: COMMON NORMALS: patient oriented x3 Urinary Catheter Management^: Cooney: Cath Placed During This Visit: yes Urinary Catheter Date of Insertion: 08/31/20 Urinary Catheter Time of Insertion: 08:30 Data : 08/31/20 04:27 08/31/20 04:27 A&P Assessment and plan (1) Acute respiratory failure with hypoxia: COVID-19 tested positive on 08/24 Decadron 6 mg I.V daily for 10 days Remdesivir 200 mg IV x1 dose - > 100 mg IV daily x 4 days ( 10/13 ) Vitamin C 500 mg po daily Zinc 50 mg po daily Duo Nebs Robutasssin DM PRN for cough Levaquin 750 mg IV daily ( 08/28 ) On HHFONC 85 % and 45Ls On Warfarin as home medication Lasix 40 mg IV every 24 hours daily Pro-calcitonin :0.23 Ferritin : CRP:63.9 D-dimer: 0.54 CTA chest : No grossly visible central pulmonary embolism/pulmonary arterial thrombus. 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 Early consolidation with crazy paving appearance. Few air bronchograms. 2D Echo : Normal left ventricle size and systolic function. Left ventricular ejection fraction is estimated at 60 %.There is possible hypokinesis of basal inferoseptal wall.Normal diastolic function. Monitor Serial chest x-ray: Monitor ABG:Ph: 7.42, PCO2: 38. PO2:78.6 fio2 : 100 % Airborne/droplet precautions Status: Acute (2) ARDS (adult respiratory distress syndrome): Severe ARDS ( P/F : 76 ) 08/12 TO COVID PNA Status: Acute (3) COVID-19: Symptoms started 3 days before he tested positive for COVID-19 pneumonia on 08/24 Management as mentioned above Status: Acute Additional A&P Information Mechanical aortic valve: INR:1.59 , Pharmacy consult to dose Coumadin dose and Monitor INR Target INR 2.5-3.5 History of migraines: No acute decompensation Cardiac diet Full code DVT prophylaxis not indicated because of Coumadin usage Attestations Medical Necessity Statement*: Patient needs to be in hospital for management of severe ARDS secondary to Covid pneumonia. Coding Level of Care Code Acute Director Athletic for Samantha Dee Diagnoses Acute respiratory failure with hypoxia J96.01 ARDS (adult respiratory distress syndrome) J80 COVID-19 U07.1
--- NOTE | 2020-08-31 15:56 | PC.NURSE ---
Patient asked nurse to take bipap off so he could take a drink. This nurse educated patient the importance of keeping bipap on to keep oxygen level above 90%. Patient did so after education and this nurse was in room the whole time. Oxygen remained above 85%.
[2020-08-31 16:46] LABS: Glucose Point of Care 193 mg/dL (70-110)
[2020-08-31] MEDS: warfarin 3 mg Tablet 6 MG PO (17:22)
[2020-08-31] MEDS: aspirin 81 mg EC Tablet PO (17:23)
--- NOTE | 2020-08-31 18:12 | PC.NURSE ---
Patient refused 1200 and 1800 s/s dose of insulin. Education was provided but patient still declined.
[2020-08-31] MEDS: LORazepam 2 mg/mL INJ 1 mL IVP (19:59)
[2020-08-31] MEDS: trazodone 150 mg Tablet 300 MG PO (20:03)
[2020-08-31] MEDS: levofloxacin-dextrose 5 % 750 MG/150 ML PREMIX 100 MG IV (20:03)
[2020-09-01] VITALS (299 sets, daily range): BP systolic 80–157; BP diastolic 44–101; PULSE 82–136; RESP 15–46; TEMP 36.7–38.8; O2SAT 56–98
[2020-09-01] MEDS: LORazepam 2 mg/mL INJ 1 mL IVP ×4 (03:55→20:48)
--- NOTE | 2020-09-01 05:00 | XR_ITS ---
WS: [id number] Exam: XR chest 1V portable [id number] Date/Time of Exam: 09/01/2020 5:00 AM Reason For Exam: PNA Comparison 08/30/2020. Bilateral diffuse interstitial infiltrates are noted most marked on the right. There has been slight improvement since previous study. The lungs are fully expanded. Heart size is normal. No pleural effu sions. Signs of median sternotomy. The mediastinum and osseous thorax are unremarkable. XR/XR chest 1V portable [id number] IMPRESSION: 1. Improving interstitial infiltrates since prior study.
[2020-09-01] MEDS: remdesivir 100 MG in sodium chloride 0.9% (100 ml) 100 ML IV (05:13)
[2020-09-01 07:36] LABS: Basophils % 0.2 %; Eosinophils % 0.3 %; Hematocrit 43.1 % (42.0-52.0); Hemoglobin 14.4 g/dL (11.7-16.6); Lymphocytes # 0.6 10^3/uL (0.8-4.8); Lymphocytes % 5.6 %; Mean Corpuscular HGB Conc 33.4 g/dL (30.0-36.0); Mean Corpuscular Hemoglobin 30.9 pg (28.0-34.0); Mean Corpuscular Volume 92.5 fL (80-94); Monocytes # 0.7 10^3/uL (0.2-0.9); Monocytes % 6.1 %; Neutrophils # 9.14 10^3/uL (1.8-7.7); Neutrophils % 86.4 %; Nucleated Red Blood Cells % 0 %; Platelet Count 264 10^3/cmm (130-400); Red Blood Count 4.66 10^6/uL (4.1-5.3); Red Cell Distribution Width 12.8 % (12.1-15.1); White Blood Count 10.6 10^3/uL (4.0-10.0)
[2020-09-01] MEDS: ipratropium-albuterol 3 mL Neb INHALATION ×4 (07:45→19:44)
[2020-09-01 07:55] LABS: Anion Gap 13.9 (5-19); Blood Urea Nitrogen 24 mg/dL (6-20); C Reactive Protein 42.5 mg/L (0.0-4.9); Carbon Dioxide 24 mmol/L (22-29); Chloride 104 mmol/L (98-107); Glucose 117 mg/dL (65-115); Osmolality Calculated 291 mOsm/kg (285-295); Potassium 3.9 mmol/L (3.5-5.1); Sodium 138 mmol/L (136-145)
[2020-09-01 08:09] LABS: Ferritin 1650 ng/mL (30-400)
[2020-09-01 08:30] LABS: Erythrocyte Sedimentation Rate 14 mm/hr (0-10)
[2020-09-01 08:38] LABS: D Dimer >= 20.00 ug/mIFEU (0-0.59)
[2020-09-01] MEDS: zonisamide 100 MG Capsule 200 MG PO ×2 (08:45→18:22)
[2020-09-01] MEDS: atorvastatin 40 mg Tablet PO (08:45)
[2020-09-01] MEDS: venlafaxine 75 mg Tablet PO (08:46)
[2020-09-01] MEDS: potassium chloride ER 20 mEq Tablet 40 MEQ PO (08:46)
[2020-09-01] MEDS: zinc gluconate 50 mg Tablet PO (08:46)
[2020-09-01] MEDS: BuSPIRONE 10 mg Tablet 20 MG PO ×2 (08:46→18:21)
[2020-09-01] MEDS: ascorbic acid 500 mg Tablet PO (08:46)
[2020-09-01] MEDS: dilTIAZem 60 mg Tablet PO ×2 (08:46→18:21)
[2020-09-01] MEDS: lamoTRIgine 100 mg Tablet 200 MG PO (08:47)
[2020-09-01] MEDS: metoprolol tartrate 50 mg Tablet 25 MG PO ×2 (08:47→18:21)
[2020-09-01] MEDS: dexamethasone 4 mg/mL INJ 6 MG IVP (08:48)
[2020-09-01 09:11] LABS: Glucose Point of Care 168 mg/dL (70-110)
[2020-09-01] MEDS: FUROsemide 10 mg/mL SDV 4mL 40 MG IVP ×2 (09:13→16:51)
[2020-09-01] MEDS: acetaminophen 325 mg Tablet PO (09:13)
--- NOTE | 2020-09-01 09:37 | PC.CHAP ---
Pastoral Care Encounter/Spiritual Assessment Type of Contact [] Declined log check scaler visit [] Patient/Family/Request visit [] Outpatient visit [] Follow-up visit [] Physician referral [] Code/Alert [x] Routine visit [] Staff referral [] Actively dying [] Patient sleeping [] Family support [] [] Out of room [] Palliative care [] [] Receiving care in room [] Pre-surgical visit [] Trauma [] Long length of stay [x] ICU visit [] Other: Relational/Emotional Strength [] Patient feels connected with others/family/visitors/staff [] Distress [] Loneliness/isolation [] Abandonment Spirituality of Patient [] Person of Marycruz [] Attends Evangelical of their Marycruz [] Believes in Prayer [] Reads Bible or Worship materials [] There are Spiritual issues to be addressed Talkback Host Interventions [x] Prayer [] Active listening [] Non-anxious presence [] Spiritual/emotional support [] Crisis/trauma care [] Spiritual counseling [] Bereavement support [] Provided bereavement packet [] Provided Bible/devotional materials [] Provided toy/stuffed animal, coloring book to patient or family member [] Provided Communion [] Anointing/[place] [] Salvation [x] Completed spiritual assessment [] Other: Impact on Illness or Injury [] Angry [] Fearful [] Anxious [] Often cries [] Exhaustion [] Unable to work [] Unable to attend jain [] Unable to walk/stand [] Unable to read [] Unable to drive [] Unable to eat/drink [] Unable to sleep [] Unable to be with family [] Patient intubated [] Other: Summary Time spent with patient
--- NOTE | 2020-09-01 10:51 | PC.NURSE ---
Patient is complaining of difficulty catching his breath. Currently he is breathing about 24 times a minute, and has a saturation of 93%. Does not appear to be in any distress. Nurse administered prn Lorazepam.
[2020-09-01 12:33] LABS: Glucose Point of Care 163 mg/dL (70-110)
--- NOTE | 2020-09-01 14:05 | PC.NURSE ---
Nurse assisted patient up to the bedside commode. Nurse changed the bed linens and helped patient to a chair. Nurse explained benefits of sitting. Patient now has an O2 saturation of 97%. Had been high 80's throughout the morning.
--- NOTE | 2020-09-01 16:22 | P.PN_ITS ---
Subjective Subjective: Interval history: febrile, increasing tachypenea Medications: Reviewed: Yes Vitals/I&O/Wt Last Vital Signs Temp 99.9 F H 09/01/20 12:00 Pulse 90 09/01/20 15:40 Resp 29 H 09/01/20 15:30 BP 101/75 09/01/20 15:30 Pulse Ox 87 L 09/01/20 15:39 09/01/20 09/01/20 09/01/20 06:59 14:59 22:59 Intake Total 450 / 1756 240 / 240 750 / 990 Output Total 950 / 950 Balance 450 / -1219 -710 / -710 750 / 40 Physical Exam Narrative: EXAM NARRATIVE: GEN: Awake, alert and oriented, no acute distress CVS: S1S2 N RS: coarse crackles all areas Abd: Soft, nt/nd , bs+ DISPATCHER ELECTRIC POWER: no focal neuro deficits Urinary Catheter Management^: Cooney: Cath Placed During This Visit: yes Reason for Continuing Indwelling Catheter: Accurate Measurement of Urinary Output in Critically Ill Patients Urinary Catheter Date of Insertion: 08/31/20 Urinary Catheter Time of Insertion: 08:30 Data : 09/01/20 07:26 09/01/20 07:26 Micro: Microbiology 09/01/20 10:20 Blood Culture - Preliminary Blood SPECIMEN COLLECTED 09/01/20 10:12 Blood Culture - Preliminary Blood SPECIMEN COLLECTED A&P Assessment and plan (1) Acute respiratory failure with hypoxia: COVID-19 tested positive on 08/24 Decadron 6 mg I.V daily for 10 days Remdesivir 200 mg IV x1 dose - > 100 mg IV daily x 4 days ( 10/13 ) Vitamin C 500 mg po daily Zinc 50 mg po daily Duo Nebs Robutasssin DM PRN for cough Levaquin 750 mg IV daily ( 08/28 ) On HHFONC 85 % and 45Ls On Warfarin as home medication Lasix 40 mg IV every 24 hours daily Pro-calcitonin :0.23 Ferritin : CRP:63.9 D-dimer: 0.54 CTA chest : No grossly visible central pulmonary embolism/pulmonary arterial thrombus. 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 Early consolidation with crazy paving appearance. Few air bronchograms. 2D Echo : Normal left ventricle size and systolic function. Left ventricular ejection fraction is estimated at 60 %.There is possible hypokinesis of basal inferoseptal wall.Normal diastolic function. Monitor Serial chest x-ray: Monitor ABG:Ph: 7.42, PCO2: 38. PO2:78.6 fio2 : 100 % Airborne/droplet precautions Status: Acute (2) ARDS (adult respiratory distress syndrome): Severe ARDS ( P/F : 76 ) 08/12 TO COVID PNA Status: Acute (3) COVID-19: Symptoms started 3 days before he tested positive for COVID-19 pneumonia on 08/24 Management as mentioned above Status: Acute Additional A&P Information Mechanical aortic valve: INR:1.59 , Pharmacy consult to dose Coumadin dose and Monitor INR Target INR 2.5-3.5 History of migraines: No acute decompensation Cardiac diet Full code DVT prophylaxis not indicated because of Coumadin usage Attestations Medical Necessity Statement*: expand abx coverage to zosyn/vanc, sputumn cx, procal, ABG, lasix 40mg iv additional, monitor closely, high risk to proceed to intubation Coding Level of Care Code Acute Liability Claims Representative for Chg Fwd Diagnoses Acute respiratory failure with hypoxia J96.01 ARDS (adult respiratory distress syndrome) J80 COVID-19 U07.1
[2020-09-01 17:04] LABS: ABG PCO2 34.8 mmHg (35-45); ABG PH Result 7.42 (7.35-7.45); Arterial Blood Gas Hematocrit 45.3 % (42-52); Base Excess ABG -1.2 mmol/L (-2.0-2.0); Blood Gas Allen Test Pos; Blood Gas Operator Identificat BD; Blood Gas Sample Site Radial, right; Blood Gas Sample Type Arterial; HCO3 ABG 22.6 mmol/L (22-26); Oxygen Device BIPAP
[2020-09-01] MEDS: aspirin 81 mg EC Tablet PO (18:21)
[2020-09-01] MEDS: enoxaparin 60 mg/0.6 mL Syringe 120 MG SUBCUT (18:22)
[2020-09-01] MEDS: vancomycin 1,250 MG/250 ML PIGGYBACK 200 MG IV (18:23)
[2020-09-01 18:33] LABS: Glucose Point of Care 173 mg/dL (70-110)
[2020-09-01 19:55] LABS: Glucose Point of Care 158 mg/dL (70-110)
[2020-09-01] MEDS: trazodone 150 mg Tablet 300 MG PO (20:03)
[2020-09-01] MEDS: piperacillin-tazobactam 3.375 GM in sodium chloride 0.9% (plus) 50 ML IV (20:03)
--- NOTE | 2020-09-01 22:22 | PC.NURSE ---
Pt has c/o some pretty severe anxiety at beginning of . PO scheduled sleep aid given along with PRN anxiety medication. Pt has had numerous episodes of pulling Bipap mask off of his face. First episode, pt dipped into the low 50% SPO2. Mask placed back on pt face with education on need to continue wearing mask. Second time, RN observed the pt taking mask off again within 15 mins of the first episode. Pt had disconnected himself from the mask and tubing, and dropped into the high 70% within 30 seconds, while RN was reassembling and placing mask back on pt's face. RN again stressed the need for mask to remain on his face. MD education general manager updated on status.
[2020-09-02] VITALS (301 sets, daily range): BP systolic 88–235; BP diastolic 52–136; PULSE 81–142; RESP 18–48; TEMP 37.1–39.4; O2SAT 50–97
[2020-09-02] MEDS: LORazepam 2 mg/mL INJ 1 mL IVP (01:06)
[2020-09-02] MEDS: vancomycin 1,250 MG/250 ML PIGGYBACK 200 MG IV ×3 (01:08→18:18)
[2020-09-02] MEDS: dexmedetomidine 400 MCG in sodium chloride 0.9% (100 ml) 100 ML IV (02:08)
[2020-09-02 03:31] LABS: Blood Gas Sample Type Arterial
[2020-09-02] MEDS: piperacillin-tazobactam 3.375 GM in sodium chloride 0.9% (plus) 50 ML IV ×3 (03:38→20:55)
[2020-09-02] MEDS: rocuronium 10 mg/mL INJ 5mL 120 MG IV (04:25)
--- NOTE | 2020-09-02 04:32 | XRR_ITS ---
PROCEDURE INFORMATION: Exam: XR Chest, 1 View Exam date and time: 09/02/2020 5:17 AM Age: 54 years old Clinical indication: Device placement; Ng tube; Additional info: Intubation TECHNIQUE: Imaging protocol: XR of the chest Views: 1 view. COMPARISON: CR XR chest 1V portable [id number] 09/01/2020 5:57 AM FINDINGS: An NG tube is seen with the tip in the stomach. An endotracheal tube is seen with the tip above the lupe. The heart size is normal. Bilateral heterogenous lung infiltrates are present showing worsening. Median sternotomy sutures are in place. XR/XR chest 1V portable [id number] IMPRESSION: The NG tube is in the stomach.
--- NOTE | 2020-09-02 04:57 | P.PCN_ITS ---
Acute Procedures Arterial Line: Time out performed: Yes Size (Gauge): 18 Technique used: guide wire technique Post-Procedure: dry sterile dressing placed Patient tolerated procedure: well Complications: none Site: right and radial Additional comments: Post intubation, right radial arterial line was placed u sing ultrasound-guided technique, right radial artery was punctured on first attempt under ultrasound guidance, arterial return of blood noticed, sterile dressing applied, Estimated blood loss 3 to 5 mL
--- NOTE | 2020-09-02 05:01 | P.PCN_ITS ---
Acute Procedures Arterial Line: Size (Gauge): 18 Intubation: Time out performed: Yes Sedative: etomidate Mg given: 30 Paralytic: rocuronium Mg given: 120 Laryngoscope: fiber optic video scope Assist device used: fiber optic device ET tube size: 8 Tube secured depth (cm): 23 Tube secured location: lips Tube placement confirmation: visualized tube passing through cords, equal breath sounds bilaterally and no breath sounds over epigastrium Patient tolerated procedure: well and no complications Intubation complications: none Additional comments: Patient was intubated because of severe hypoxia evident on ABG that was done while he was on optimal BiPAP settings 100% FiO2 PaO2 49 normal pH, consent was taken from the patient, was also notified who gave the consent as well she was updated before and after the procedure, Gscope was used to visualize the cords after giving sedatives and paralytic agents, vocal cords were visualized, endotracheal tube was passed on first attempt without any difficulty, bilateral breath sounds were heard, patient tolerated the procedure very well his oxygen saturation initially were around 70% with gradual improvement to 90 to 91% on PRVC 100%, PEEP 14, respiratory rate 18 tidal volume 450, peak pressure 18 For sedation I have requested Versed to be started at 3 and fentanyl, avoiding propofol because his systolic blood pressure is ranging between 1 10-1 20mmhg Kindly consult first press operator in the morning
[2020-09-02] MEDS: propofol 1,000 MG/100 ML INJ 15.1 MG IV (05:15)
[2020-09-02 05:37] LABS: Basophils % 0.2 %; Eosinophils # 0.1 10^3/uL (0.0-0.8); Hematocrit 43.9 % (42.0-52.0); Hemoglobin 14.6 g/dL (11.7-16.6); Lymphocytes # 0.7 10^3/uL (0.8-4.8); Lymphocytes % 6.2 %; Mean Corpuscular HGB Conc 33.3 g/dL (30.0-36.0); Mean Corpuscular Hemoglobin 31.1 pg (28.0-34.0); Mean Corpuscular Volume 93.4 fL (80-94); Mean Platelet Volume 10.2 fL (7.4-10.4); Monocytes # 0.7 10^3/uL (0.2-0.9); Monocytes % 6.3 %; Neutrophils # 9.14 10^3/uL (1.8-7.7); Neutrophils % 84.5 %; Nucleated Red Blood Cells % 0.2 %; Platelet Count 260 10^3/cmm (130-400); Red Cell Distribution Width 12.5 % (12.1-15.1); White Blood Count 10.8 10^3/uL (4.0-10.0)
[2020-09-02] MEDS: dexmedetomidine 400 MCG in sodium chloride 0.9% (100 ml) 100 ML 32.8 MCG IV (05:53)
[2020-09-02] MEDS: sodium chloride 0.9% 500 ML 10 ML IV (06:10)
--- NOTE | 2020-09-02 06:11 | P.EN_ITS ---
Event Note Event Note: Post intubation follow-up, chest x-ray shows satisfactory position of endotracheal tube, OG tube at appropriate position Patient has maxed on fentanyl 200 propofol 60 Versed is running at 7 he is still breathing above the vent asynchronous breathing He is getting hypotensive now I have asked the nurse to discontinue propofol as I would use Nimbex bolus 0.03 mg/kg, we will keep vasopressor on standby if needed We will consult senior financial consultant as well for assistance Depending upon his neuromuscular blockade Bumex dose will be adjusted for now I would use intermittent dosing before considering continuous infusion, second bolus administration will be decided depending upon neuromuscular blockade Left a voicemail to his as well
[2020-09-02 06:13] LABS: NT Pro B Type Natriuretic Pept 363 pg/mL (0-125); Procalcitonin 0.14 ng/mL (0-0.5)
[2020-09-02] MEDS: cisatracurium 2 mg/mL SDV 10mL 3 MG IV (06:19)
[2020-09-02 06:24] LABS: Alanine Aminotransferase 21 U/L (0-41); Albumin Level 3.6 g/dL (3.5-5.2); Alkaline Phosphatase 100 IU/L (40-130); Aspartate Amino Transferase 41 U/L (0-40); Blood Urea Nitrogen 26 mg/dL (6-20); Calcium 8.8 mg/dL (8.5-10.5); Carbon Dioxide 25 mmol/L (22-29); Chloride 103 mmol/L (98-107); Globulin 2.9 g/dL (1.3-4.6); Glomerular Filtration Rate 87.3 mL/min (90-130); Glucose 134 mg/dL (65-115); Osmolality Calculated 291 mOsm/kg (285-295); Sodium 137 mmol/L (136-145); Total Protein 6.5 g/dL (6.6-8.7)
[2020-09-02] MEDS: enoxaparin 60 mg/0.6 mL Syringe 120 MG SUBCUT (06:24)
[2020-09-02 06:29] LABS: Anion Gap 13.2 (5-19); Potassium 4.2 mmol/L (3.5-5.1)
[2020-09-02] MEDS: acetaminophen 325 mg Tablet PO ×2 (06:55→12:06)
[2020-09-02] MEDS: cisatracurium 100 MG in sodium chloride 0.9% 50 ML IV (07:09)
--- NOTE | 2020-09-02 07:14 | PC.NURSE ---
Verbal consent: RN obtained verbal consent from patient's Tess Theodore. agreed for emergent need and gave consent to continue forward with intubation. Second RN Gladis, also verified consent.
--- NOTE | 2020-09-02 07:28 | PC.NURSE ---
Intubation/Art Line: Pt was intubated by MD Jah at 0425. MD obtained consent and explained procedure to pt before, and verbal consent obtained from pt's . 0425- 30 Etomidate IVP 0425-120 Leonard IVP 0427- 8.0 ET tube, and 24@lip. OG placed. Art Line also placed at time of intubation by MD Jah. Chest Xray obtained to confirm placement.
--- NOTE | 2020-09-02 07:36 | PC.NURSE ---
Shift Summary; Pt had numerous episodes of anxiety/agitation throughout evening shift. IVP Ativan given with little observed effect. Precedex was started based on new order given by Jah in hopes of decreasing confusion and RR on Bipap. Pt continued to have noted agitation and confusion at times. MD Jah gave orders to increase rate of precedex up to 1mg/min. Around 0400 decision was made to intubate pt based on continued declining SPO2 status. Se MAR flowsheet. Pt continued to have isues with compliance of vent settings after intubation. Sedation was increased and orders given for RN to increase Fentanyl to 200, Versed to 5, Propofol to 60, and discontinue Precedex gtt. After no difference noted in SPO2 status, RN was given new orders to IVP Nimbex and begin a Nimbex gtt for paralytic effects. After administration of Nimbex, pt achieved vent compliance. BIS monitor initiated for placement, and baseline TO4 of 3/4 @6 recorded as well. Fevers noted to increase from 100.6 axillary to 102. APAP given through OG tube this AM. Report given to anjana oscar RN.
[2020-09-02] MEDS: ipratropium-albuterol 3 mL Neb INHALATION ×4 (07:43→20:19)
--- NOTE | 2020-09-02 08:00 | PC.NURSE ---
RN updated after intubation and art line placement thi
[2020-09-02] MEDS: lamoTRIgine 100 mg Tablet 200 MG PO (08:09)
[2020-09-02] MEDS: metoprolol tartrate 50 mg Tablet 25 MG PO (08:09)
[2020-09-02] MEDS: dilTIAZem 60 mg Tablet PO ×2 (08:09→19:09)
[2020-09-02] MEDS: atorvastatin 40 mg Tablet PO (08:10)
[2020-09-02] MEDS: BuSPIRONE 10 mg Tablet 20 MG PO ×2 (08:10→19:09)
[2020-09-02] MEDS: zinc gluconate 50 mg Tablet PO (08:10)
[2020-09-02] MEDS: ascorbic acid 500 mg Tablet PO (08:10)
[2020-09-02] MEDS: potassium chloride ER 20 mEq Tablet 40 MEQ PO (08:10)
[2020-09-02] MEDS: venlafaxine 75 mg Tablet PO (08:11)
[2020-09-02] MEDS: FUROsemide 10 mg/mL SDV 4mL 40 MG IVP (08:11)
[2020-09-02] MEDS: propofol 1,000 MG/100 ML INJ 26.5 MG IV ×2 (08:29→14:55)
[2020-09-02 08:52] LABS: Glucose Point of Care 131 mg/dL (70-110)
--- NOTE | 2020-09-02 09:05 | PC.SOCIAL ---
*IMM* Attempted to call and give IMM, SHe did not answer but I did leave a voicemail. Patient is on the VENT.
--- NOTE | 2020-09-02 09:35 | PC.CHAP ---
Pastoral Care Encounter/Spiritual Assessment Type of Contact [] Declined chief of anesthesiology visit [] Patient/Family/Request visit [] Outpatient visit [] Follow-up visit [] Physician referral [] Code/Alert [x] Routine visit [] Staff referral [] Actively dying [] Patient sleeping [] Family support [] [] Out of room [] Palliative care [] [] Receiving care in room [] Pre-surgical visit [] Trauma [] Long length of stay [x] ICU visit [x] Other: ventilator Relational/Emotional Strength [] Patient feels connected with others/family/visitors/staff [] Distress [] Loneliness/isolation [] Abandonment Spirituality of Patient [] Person of Marycruz [] Attends Lutheran of their Marycruz [] Believes in Prayer [] Reads Bible or Caodaism materials [] There are Spiritual issues to be addressed Marking Machine Operator Interventions [x] Prayer [] Active listening [] Non-anxious presence [] Spiritual/emotional support [] Crisis/trauma care [] Spiritual counseling [] Bereavement support [] Provided bereavement packet [] Provided Bible/devotional materials [] Provided toy/stuffed animal, coloring book to patient or family member [] Provided Communion [] Anointing/[place] [] Salvation [x] Completed spiritual assessment [] Other: Impact on Illness or Injury [] Angry [] Fearful [] Anxious [] Often cries [] Exhaustion [] Unable to work [] Unable to attend muslim [] Unable to walk/stand [] Unable to read [] Unable to drive [] Unable to eat/drink [] Unable to sleep [] Unable to be with family [] Patient intubated [] Other: Summary Time spent with patient
--- NOTE | 2020-09-02 09:56 | PC.NURSE ---
Patient has levophed infusing. Just recent;y started after intubation. No central line at this time. Nurse alerted Dr tapia. Nurse assess IV that levophed is going into. 18 g right forearm, flushes easily and draws blood.
--- NOTE | 2020-09-02 09:59 | PC.NURSE ---
Patients heart rate has increased to [address] tapia. Received orders to stop levophed and continue to monitor rate and pressure.
[2020-09-02 10:56] LABS: ABG PH Result 7.21 (7.35-7.45); Alveolar-Arterial Oxygen Gradi 74.1 mmHg (5-10); Arterial Blood Gas Hematocrit 44.7 % (42-52); Base Excess ABG -4.4 mmol/L (-2.0-2.0); Blood Gas Operator Identificat CAK; Blood Gas Sample Site ARTLINE; Blood Gas Sample Type Arterial; Carboxyhemoglobin 0.8 %THgb (0.4-20.1); HCO3 ABG 24.8 mmol/L (22-26); HGB O2 Sat 88.1 % (95-100); Ionized Calcium Level - ABG 1.1 mmol/L (1.1-1.4); Oxygen Device VENT; Oxygen Saturation ABG 89.7; PO2 ABG 69.8 mmHg (80.0-100.0); Total Hemoglobin 14.6 g/dL (14-18)
[2020-09-02 10:57] LABS: ABG PCO2 62.6 mmHg (35-45)
[2020-09-02 10:59] LABS: ABG PCO2 53.1 mmHg (35-45); ABG PH Result 7.29 (7.35-7.45); Arterial Blood Gas Hematocrit 46.3 % (42-52); Base Excess ABG -1.7 mmol/L (-2.0-2.0); Blood Gas Sample Site Radial, right; Blood Gas Tidal Volume 0.55; HCO3 ABG 25.7 mmol/L (22-26); Oxygen Device VENT; PO2 ABG 75.3 mmHg (80.0-100.0)
--- NOTE | 2020-09-02 11:10 | ECG_ITS ---
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 Measurements Intervals Herman Rate: 127 P: 62 FL: 144 QRS: 17 QRSD: 109 T: 41 QT: 312 QTc: 454 Interpretive Statements SINUS TACHYCARDIA NONSPECIFIC ST & T-WAVE ABNORMALITY ABNORMAL RHYTHM ECG Compared to ECG 09/24/2018 23:56:58 Sinus rhythm no longer present Intraventricular conduction delay no longer present T-wave abnormality still present Electronically Signed On 09-02-2020 17:45:41 PHYSICIAN ASSISTANT by Mikael Orozco M.D. [email or web address]
[2020-09-02 12:48] LABS: Glucose Point of Care 139 mg/dL (70-110)
[2020-09-02] MEDS: cisatracurium 100 MG in sodium chloride 0.9% 50 ML 13.6 MG IV ×2 (14:55→23:30)
--- NOTE | 2020-09-02 15:07 | PM.PN ---
Subjective Subjective: Interval history: overnight labs and events reviewed, patient intubated, sedated, paralyzed On levophed 2mcg this morning, titrated off this afternoon tele with sinus tacjycardia HR 120s Tmax 101.1 Medications: Reviewed: Yes Vitals/I&O/Wt Last Vital Signs Temp 101.1 F H 09/02/20 12:00 Pulse 120 H 09/02/20 12:49 Resp 24 H 09/02/20 12:56 BP 88/52 09/02/20 12:49 Pulse Ox 92 09/02/20 12:49 09/02/20 09/02/20 09/02/20 06:59 14:59 22:59 Intake Total 597.510 / 1937.510 814.357 / 814.357 Output Total 1200 / 3550 Balance -602.490 / -1612.490 814.357 / 814.357 Physical Exam Narrative: EXAM NARRATIVE: GEN: intubated, sedated, paralyuzed CVS: S1S2 N RS: CTA B/L except crackles over RUL Abd: Soft, nt/nd , bs+ INDEPENDENT PRODUCER: unable to assess Urinary Catheter Management^: Cooney: Cath Placed During This Visit: yes Reason for Continuing Indwelling Catheter: Accurate Measurement of Urinary Output in Critically Ill Patients Urinary Catheter Date of Insertion: 08/31/20 Urinary Catheter Time of Insertion: 08:30 Data : 09/02/20 05:02 09/02/20 05:02 Other Labs: 08/28/20 08/31/20 09/01/20 04:30 03:35 16:53 ABG pH 7.37 7.42 7.42 ABG pCO2 34.6 L 38.5 34.8 L ABG pO2 63.8 L 78.6 L 157.0 H ABG HCO3 20.1 L 25.0 22.6 ABG O2 Saturation 93.2 96.3 ABG Base Excess -4.3 L 0.6 -1.2 09/02/20 09/02/20 03:20 10:44 ABG pH 7.29 L 7.21 L ABG pCO2 53.1 H 62.6 H* ABG pO2 75.3 L 69.8 L ABG HCO3 25.7 24.8 ABG O2 Saturation 89.7 ABG Base Excess -1.7 -4.4 L Micro: Microbiology 09/02/20 08:18 Gram Stain - Final Sputum - Endotracheal Tube Aspirate 09/01/20 10:20 Blood Culture - Preliminary Blood NEGATIVE TO DATE 09/01/20 10:12 Blood Culture - Preliminary Blood NEGATIVE TO DATE Microbiology 09/02/20 08:18 Sputum - Endotracheal Tube Aspirate Gram Stain - Final 09/01/20 10:20 Blood Blood Culture - Preliminary NEGATIVE TO DATE 09/01/20 10:12 Blood Blood Culture - Preliminary NEGATIVE TO DATE A&P Assessment and plan (1) Acute respiratory failure with hypoxia: COVID-19 tested positive on 08/24 Decadron 6 mg I.V daily to continue s/p Remdesivir 200 mg IV x1 dose - > 100 mg IV daily x 4 days Vitamin C 500 mg po daily Zinc 50 mg po daily Duo Nebs Currently on Zosyn /vanc started on 09/01, previously on levaquin Lovenox 1mg/kg q12h started 09/01, previously on Coumadin , INR therapeutic range. Lasix 40 mg IV every 24 hours daily, hold today as net negativ 1.5L, BNP not significantly elevated, hypotensive Pro-calcitonin :0.23 CRP:63.9 --> 42.5 D-dimer: 0.54 --> >20 procal 0.14 CTA chest : No grossly visible central pulmonary embolism/pulmonary arterial thrombus. 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 Early consolidation with crazy paving appearance. Few air bronchograms. 2D Echo : Normal left ventricle size and systolic function. Left ventricular ejection fraction is estimated at 60 %.There is possible hypokinesis of basal inferoseptal wall.Normal diastolic function. Airborne/droplet precautions Unlikely to benefit from CP at this time- Currently, there are insufficient data from well-controlled, adequately powered, randomized clinical trials to evaluate the efficacy and safety of convalescent plasma for the treatment of COVID-19. FDA evaluation for efficacy suggest that convalescent plasma with high antibody titers may be more beneficial than low-titer plasma in nonintubated patients, particularly when administered within 72 hours of COVID-19 diagnosis. Unfortunately patient currently progressed to intubation and approx 10 days out from positive test. Status: Acute (2) ARDS (adult respiratory distress syndrome): Severe ARDS ( P/F : 76 ) 08/12 TO COVID PNA Status: Acute (3) COVID-19: Symptoms started 3 days before he tested positive for COVID-19 pneumonia on 08/24 Management as mentioned above Status: Acute Additional A&P Information Mechanical aortic valve: currently on Lovenox Cardiac diet Full code DVT prophylaxis : lovenox Attestations Medical Necessity Statement*: respirtaory failure 2/ COVID 19 ARDS, need for ICU management , mechanical ventilation Critical Care Time: The high probability of a clinically significant, sudden or life threatening deterioration of the patient's [respiratory ] system(s) required my full and direct attention, intervention and personal management. The critical care time is as shown. This time is in addition to time spent performing any reported procedures but includes the following: [x] Data and vital sign review and interpretation [x] Patient assessment, examination and intervention [x] Documentation [x] Medication orders and management Critical Care Time (min): 45 Procedures Arterial Line Size (Gauge): 18 Coding Level of Care Code Acute Board Certified Behavioral Analyst for [facility] Fwmatthew Diagnoses Acute respiratory failure with hypoxia J96.01 ARDS (adult respiratory distress syndrome) J80 COVID-19 U07.1
[2020-09-02] MEDS: dexamethasone 4 mg/mL INJ 6 MG IVP (16:00)
--- NOTE | 2020-09-02 16:49 | PC.NURSE ---
Nurse received okay form DR tapia for patient to have as a visitor at bedside. Pt is still on isolation for covid. Patient's also had covid and just came off of quarantine restriction. Will be required to wear all PPE.
--- NOTE | 2020-09-02 16:50 | PC.NURSE ---
TOF/BIS 0800: 443 0900: 58 1000: 2/47 1100: 257 1200: 1300: 53 1400: 2/ unknown, BIS monitor malfunction 1500: 2/ Unknown BIS monitor malfunction 1600: 1700: 240
[2020-09-02 18:25] LABS: Glucose Point of Care 139 mg/dL (70-110)
--- NOTE | 2020-09-02 18:57 | XR_ITS ---
WS: [id number] Exam: XR chest 1V portable [id number] Date/Time of Exam: 09/02/2020 7:05 PM Reason For Exam: central line placement Comparison made with the exam performed on the same day at 0505 hours. Extensive bilateral pulmonary infiltrates are again noted. Infiltrates in the left lower lung zones s how some improvement but no other significant change. Heart size is normal. A left-sided IJ catheter has been placed and ends in the lower one third of the SVC in good position. An endotracheal tube is in place ending about 6 cm above the lupe in good position. An NG tube extends into the stomach. Mo nitoring leads superimpose the chest. Signs of prior median sternotomy. XR/XR chest 1V portable [id number] IMPRESSION: 1. Left-sided IJ catheter in place in satisfactory location. 2. Bilateral pulmonary infiltrates. Infiltrates in the left lower lung zones ar e improved since the last study but no other change. 2. ET tube and NG tube are both in satisfactory position.
[2020-09-02] MEDS: ibuprofen 600 mg Tablet PO (19:07)
--- NOTE | 2020-09-02 19:16 | PC.NURSE ---
Will be proning patient and placing central line. Nurse obtained telephone consent form daniel. witnessed by another nurse and placed in chart. Explained to the reasoning for the central line and proning therapy.
--- NOTE | 2020-09-02 19:24 | PM.ACPR ---
Procedure/Consent Time out: Time Out Performed: Yes Consent: Consent for Procedure: Consent obtained from other (indicate) Procedure Narrative: Name of the Procedure: Left Internal Jugular Central venous catheter placement under ultrasound guidance. Indication: Need for vasopressor Anesthesiia: Lidocaine 1%, 5 ml Description of the procedure: The left IJ vein was identified with the Ultrasound from collapsibility and lack of pulsatility. The site was prepared using sterile technique. The skin and subcuteneous tissue was anesthetized using lidocaine. The introducer needle was advanced under US guidance till flash back was noted. Dark, non pulsatile blood noted. Using seldinger technique the CVC was put in.Blood return was noted in all ports. Catheter was secured with suture and covered with transparent dressing. Complications: None X-ray: Central line is in good position Acute Procedures Arterial Line: Size (Gauge): 18 Epistaxis Control: Time out performed: Yes
--- NOTE | 2020-09-02 19:28 | PC.NURSE ---
nurse held evening lovenox due to central line placement procedure.
--- NOTE | 2020-09-02 19:29 | PM.CONSULT ---
Providers/Reason For Consult Consulting Physican/Specialty*: Pulmonary critical care medicine Reason for Consult*: ARDS secondary to COVID-19 pneumonia Attending Physician: Mei Patterson MD Primary Care Provider: Kam Lainez DO History of Present Illness History of Present Illness Parker Theodore is a 54 year old male who presented to the hospital on August 28 with worsening respiratory status after being tested positive for COVID-19 on August 24. The patient was initially managed on high flow nasal cannula followed by BiPAP and this morning the patient required intubation and mechanical ventilation. He has been treated with remdesivir, dexamethasone and Lasix as needed. The patient is a generally healthy individual. He has previous history of smoking and quit smoking in 2014. He had a mechanical aortic valve replacement and on chronic anticoagulation therapy. We are unsure what was the etiology for the mechanical aortic valve replacement. I was contacted by the overnight hospitalist about the patient's deterioration of respiratory status this morning. After discussion the patient was paralyzed. Currently when I saw the patient he was on patient-controlled mechanical ventilation. I have changed him to volume control with tidal volume 480, PEEP of 12, FiO2 of 100%. The arterial blood gas this morning revealed a pH of 7.21, PCO2 of 63 and PO2 of 7100% oxygen PEEP of 14. His CT angiogram of the chest obtained on August 30 revealed diffuse bilateral groundglass opacities superimposed on emphysematous changes predominantly in bilateral upper lobes. The patient is currently sedated with propofol, fentanyl and Versed. He is requiring a small dose of vasopressor. He is broadly covered with Zosyn and vancomycin. Review of Systems Narrative: Able to assess Meds/Allergies Home Medications and Allergies Home Medications Medication Instructions Recorded Confirmed Last Taken Type ascorbic acid (vitamin C) 500 mg 500 mg PO DAILY@0900 cap 08/21/19 08/28/20 08/26/20 History capsule cholecalciferol (vitamin D3) 50 2,000 unit PO DAILY@0900 08/21/19 08/28/20 08/26/20 History mcg (2,000 unit) tablet diltiazem HCl 60 mg tablet 60 mg PO BID@0900,2030 tab 08/21/19 08/28/20 08/26/20 History ferrous sulfate 325 mg (65 mg 325 mg PO DAILY@0900 08/21/19 08/28/20 08/26/20 History iron) tablet lamotrigine 200 mg tablet 200 mg PO DAILY@202908/21/19 08/28/20 08/26/20 History metoprolol tartrate 50 mg tablet 25 mg PO BID@08/21/19 08/28/20 08/26/20 History omega-3 fatty acids 1,000 mg 1,000 mg PO BID@08/21/19 08/28/20 08/26/20 History capsule omeprazole 40 mg capsule,delayed 40 mg PO BID@08/21/19 08/28/20 08/26/20 History release rosuvastatin 10 mg tablet 10 mg PO DAILY@202908/21/19 08/28/20 08/26/20 History trazodone 100 mg tablet 200 mg PO DAILY@89908/21/19 08/28/20 08/26/20 History venlafaxine 75 mg tablet 75 mg PO DAILY@89908/21/19 08/28/20 08/26/20 History warfarin 6 mg tablet 6 mg PO DAILY@89908/21/19 08/28/20 08/26/20 History buspirone 10 mg tablet 20 mg PO BID@ tab 07/17/20 08/28/20 08/26/20 History aspirin [Aspir-81] 81 mg PO DAILY@202908/28/20 08/28/20 08/26/20 History zonisamide 400 mg PO BID@08/28/20 08/28/20 08/28/20 History Allergies Allergy/AdvReac Type Severity Reaction Status Date / Time methocarbamol Allergy tachycardia Verified 07/17/20 11:47 metoclopramide [From Reglan] Allergy vomit Verified 07/17/20 11:47 oxycodone AdvReac aggitation Verified 07/17/20 11:47 pravastatin AdvReac muscle pain Verified 07/17/20 11:47 sumatriptan AdvReac rash Verified 07/17/20 11:47 Current Medications Current Medications Generic Name Dose Route Start Last Admin Trade Name Freq PRN Reason Stop Dose Admin Acetaminophen 325 - 650 mg 08/28/20 04:43 09/02/20 12:06 Acetaminophen 325 Mg Tablet PO 650 mg Q4H PRN Administration MILD PAIN OR INCREASE TEMP Albuterol/Ipratropium 3 ml 08/28/20 04:43 09/02/20 15:54 Ipratropium-Albuterol 3 Ml Neb INHALATION 3 ml Q4H PRN Administration SHORTNESS OF BREATH Ascorbic Acid 500 mg 08/28/20 09:00 09/02/20 08:10 Ascorbic Acid 500 Mg Tablet PO 500 mg DAILY SHONDA Administration Aspirin 81 mg 08/28/20 18:00 09/02/20 19:08 Aspirin 81 Mg Ec Tablet PO Not Given 1800 SHONDA Atorvastatin Calcium 40 mg 08/28/20 09:00 09/02/20 08:10 Atorvastatin 40 Mg Tablet PO 40 mg DAILY SHONDA Administration Buspirone HCl 20 mg 08/28/20 09:00 09/02/20 19:09 Buspirone 10 Mg Tablet PO 20 mg BID SHONDA Administration Dexamethasone 6 mg 09/02/20 15:30 09/02/20 16:00 Dexamethasone 4 Mg/Ml Inj IVP 6 mg Q24H SHONDA Administration Diltiazem HCl 60 mg 08/28/20 09:00 09/02/20 19:09 Diltiazem 60 Mg Tablet PO 60 mg BID SHONDA Administration Enoxaparin Sodium 120 mg 09/01/20 18:30 09/02/20 19:28 Enoxaparin 60 Mg/0.6 Ml Syringe SUBCUT Not Given Q12H SHONDA Piperacillin Sod/Tazobactam 50 mls @ 12.5 mls/hr 09/01/20 19:30 09/02/20 17:03 Sod 3.375 gm/ Sodium Chloride IV Infused Q8H SHONDA Infusion Protocol Vancomycin/PEG/NADA/Lysine/Water 1,250 mg in 250 mls @ 200 mls/hr 09/01/20 18:00 09/02/20 18:18 Vancocin IV 200 mls/hr Q8H SHONDA Administration Fentanyl 1,000 mcg/ Sodium 100 mls @ 0 mls/hr 09/02/20 04:45 09/02/20 15:26 Chloride IV 175 mcg/hr .Q0M SHONDA 17.5 mls/hr Titration Protocol Per Protocol Midazolam HCl 100 mg/ Sodium 100 mls @ 0 mls/hr 09/02/20 04:45 09/02/20 06:05 Chloride IV 4 mg/hr .Q0M SHONDA 4 mls/hr Titration Protocol Per Protocol Propofol 1,000 mg in 100 mls @ 0 mls/hr 09/02/20 04:45 09/02/20 15:26 Diprivan IV 25 mcg/kg/min .Q0M SHONDA 18.9 mls/hr Titration Protocol Per Protocol Norepinephrine Bitartrate 4 mg 254 mls @ 0 mls/hr 09/02/20 06:15 09/02/20 15:26 / Dextrose IV 2 mcg/min .Q0M SHONDA 7.6 mls/hr Titration Protocol Per Protocol Cisatracurium Besylate 100 mg/ 100 mls @ 0 mls/hr 09/02/20 06:15 09/02/20 15:26 Sodium Chloride IV 1.55 mcg/kg/min .Q0M SHONDA 11.7 mls/hr Titration Protocol Per Protocol Insulin Aspart 0 unit 08/28/20 08:00 09/02/20 18:17 Insulin Aspart 100 Unit/1 Ml SUBCUT Not Given WM&BEDTIME SHONDA Protocol Lamotrigine 200 mg 08/28/20 09:00 09/02/20 08:09 Lamotrigine 100 Mg Tablet PO 200 mg DAILY SHONDA Administration Lorazepam 0.25 mg 08/31/20 00:34 08/31/20 01:08 Lorazepam 2 Mg/Ml Inj 1 Ml IVP 0.25 mg ONCE PRN Administration ANXIETY Lorazepam 2 mg 08/31/20 18:35 09/02/20 01:06 Lorazepam 2 Mg/Ml Inj 1 Ml IVP 2 mg Q4H PRN Administration ANXIETY Metoprolol Tartrate 25 mg 08/28/20 09:00 09/02/20 19:08 Metoprolol Tartrate 50 Mg Tablet PO Not Given BID SHONDA Potassium Chloride 40 meq 08/31/20 09:00 09/02/20 08:10 Potassium Chloride Er 20 Meq Tablet PO 40 meq DAILY SHONDA Administration Rocuronium [place] 120 mg 09/02/20 04:15 09/02/20 04:25 Rocuronium 10 Mg/Ml Inj 5ml IV 120 mg ONCE PRN Administration intubation Trazodone HCl 300 mg 08/28/20 21:00 09/01/20 20:03 Trazodone 150 Mg Tablet PO 300 mg BEDTIME SHONDA Administration Venlafaxine HCl 75 mg 08/28/20 10:00 09/02/20 08:11 Venlafaxine 75 Mg Tablet PO 75 mg DAILY SHONDA Administration Zinc Gluconate 50 mg 08/28/20 09:00 09/02/20 08:10 Zinc Gluconate 50 Mg Tablet PO 50 mg DAILY SOHNDA Administration Zonisamide 200 mg 08/28/20 18:00 09/01/20 18:22 Zonisamide 100 Mg Capsule PO 200 mg BID SHONDA Administration PFSH Acute PFSH: Medical History Carpal tunnel syndrome, left upper limb Cerebrovascular disease Chronic migraine without aura, intractable, with status migrainosus Depression Head injury due to trauma HTN (hypertension) Hyperlipidemia Leg swelling PTSD (post-traumatic stress disorder) Surgical History Hx of aortic valve replacement Hx of aortic valvuloplasty Family History Other CAD (coronary artery disease) Cancer Denies family history of Diabetes Hypertension Stroke Social History Smoking and tobacco status: former smoker Quit status (tobacco): has quit using tobacco Year quit tobacco: 2014 Alcohol intake: former History of recent travel: No Vitals/I&O/Wt Last Vital Signs Temp 102.9 F H 09/02/20 18:30 Pulse 93 09/02/20 19:15 Resp 22 H 09/02/20 16:55 BP 120/73 09/02/20 19:15 Pulse Ox 91 09/02/20 19:15 09/02/20 09/02/20 09/02/20 06:59 14:59 22:59 Intake Total 597.510 / 1937.510 814.357 / 814.357 80.719 / 895.076 Output Total 1200 / 3550 600 / 600 Balance -602.490 / -1612.490 814.357 / 814.357 -519.281 / 295.076 Physical Exam Narrative: EXAM NARRATIVE: General: The patient is intubated and sedated HEENT: Pinpoint pupil Neck: No JVD Respiratory: Auscultation: Crackles at bilateral lung bases, no wheezing or rhonchi Cardiovascular: Regular rate and rhythm, S1-S2 present, no murmur, no peripheral edema. Abdomen: Soft, nondistended, absent bowel sound Skin: No rash Neuro: The patient is sedated Urinary Catheter Management^: Cooney: Cath Placed During This Visit: yes Reason for Continuing Indwelling Catheter: Accurate Measurement of Urinary Output in Critically Ill Patients Urinary Catheter Date of Insertion: 08/31/20 Urinary Catheter Time of Insertion: 08:30 Data Micro: Micro: Microbiology 09/02/20 08:18 Gram Stain - Final Sputum - Endotrac heal Tube Aspirate 09/01/20 10:20 Blood Culture - Pr eliminary Blood NEGATIVE TO SONNY E 09/01/20 10:12 Blood Culture - Pr eliminary Blood NEGATIVE TO SONNY E Other Data: Attestation for Other Data: I personally reviewed and interpreted the following: Other data: Reviewed the patient's laboratory, microbiologic and radiologic data. Please see the HPI for detail A&P Assessment and plan (1) ARDS (adult respiratory distress syndrome): This is a 54-year-old gentleman with COVID-19 pneumonia leading to ARDS. The patient has bilateral groundglass opacities superimposed on emphysematous changes. Interestingly, the patient has good lung compliance. Currently he is on volume control, tidal volume of 480 mL, PEEP of 12, FiO2 of 100%. In his last blood gas there was evidence of developing hypercapnia. The patient is currently paralyzed because of synchrony. Get obtain a blood gas. We are trying to get the patient transferred for possible need for nitric oxide or inhaled prostaglandin or possible ECMO. However, if this does not bottom turning lathe tender to be the case, the patient is going to be proned. We will continue with judicious fluid management. Currently there is no evidence of fluid overload. Status: Acute (2) COVID-19: Patient is currently on dexamethasone as well as broad-spectrum antibiotic. He is requiring small dose of vasopressors due to septic shock from COVID-19. Status: Acute (3) Hx of aortic valve replacement: We will continue with full dose anticoagulation. Status: Acute Procedures Arterial Line Size (Gauge): 18 Coding Level of Care Code Acute Drone Pilot for g Fwd Diagnoses ARDS (adult respiratory distress syndrome) J80 COVID-19 U07.1 Hx of aortic valve replacement Z95.2
[2020-09-02 19:39] LABS: ABG PH Result 7.28 (7.35-7.45); Alveolar-Arterial Oxygen Gradi 75.5 mmHg (5-10); Arterial Blood Gas Hematocrit 42.8 % (42-52); Base Excess ABG -2.7 mmol/L (-2.0-2.0); Blood Gas Operator Identificat HARKR; Blood Gas Sample Site ART LINE; Blood Gas Sample Type Arterial; Blood Gas Tidal Volume 0.48; Carboxyhemoglobin 0.9 %THgb (0.4-20.1); HCO3 ABG 24.8 mmol/L (22-26); HGB O2 Sat 89.5 % (95-100); Ionized Calcium Level - ABG 1.2 mmol/L (1.1-1.4); Oxygen Device VENT; Oxygen Saturation ABG 91.2; PO2 ABG 64.6 mmHg (80.0-100.0); Potassium Level - ABG 4.4 mmol/L (3.5-5.0)
[2020-09-02] MEDS: propofol 1,000 MG/100 ML INJ 18.9 MG IV (20:55)
--- NOTE | 2020-09-02 21:24 | PC.NURSE ---
Central Line Placement; Central line placed by MD Alex to left IJ. Triple lumen. Sterility during placement. RN checked each lumen for blood return, and easily flushable. Sterile dressing kit applied, with suture placement. CXR ordered and confirmed for correct placement.
--- NOTE | 2020-09-02 21:29 | PC.NURSE ---
Proning; Pt proned @1999. MD Alex at bedside to protect tube. Nursing staff X3, and RT staff X2 at bedside completing proning repositioning along with primary RN. Immediate increase to 97% in SPO2 status observed, after patient placed in prone positioning. V/O given for pt to follow proning protocol, and remain prone for 16H/Back 8H. Turn onto back 09/03 @1200.
[2020-09-02 21:45] LABS: Glucose Point of Care 180 mg/dL (70-110)
[2020-09-02 22:10] LABS: ABG PCO2 58.6 mmHg (35-45); ABG PH Result 7.21 (7.35-7.45); Arterial Blood Gas Hematocrit 43.2 % (42-52); Base Excess ABG -5.2 mmol/L (-2.0-2.0); Blood Gas Sample Type Arterial; HCO3 ABG 23.6 mmol/L (22-26)
[2020-09-02 22:11] LABS: Blood Gas Operator Identificat HARKR; Blood Gas Sample Site ART LINE; Blood Gas Tidal Volume 0.48; Oxygen Device VENT
[2020-09-03] VITALS (180 sets, daily range): BP systolic 88–125; BP diastolic 48–82; PULSE 79–95; RESP 23–29; TEMP 36.6–37.1; O2SAT 75–99
[2020-09-03] MEDS: vancomycin 1,250 MG/250 ML PIGGYBACK 200 MG IV ×2 (01:54→09:17)
--- NOTE | 2020-09-03 02:33 | PC.NURSE ---
[facility] Update: Jyoti; a patient coordinator at [facility], called this early AM and updated RN on status of pt transfer to [facility]. At this time, [facility] is waiting to hear word from their in house physician about pt's eligibility for ECMO. Jyoti stated that pt would still remain on their board until tomorrow AM. And at which time their physician would contact Palak Johnson MD and discuss the potential for transfer. At this time, Jyoti also expressed that they currently had no ICU beds available, but could potentially change by morning. RN also gave update on pt's status and proning activity. RN ensured that pt would remain on the board for possibility of transfer and would not be removed/miss an opportunity for a future bed, in the case that the MD's decided a transfer would be best. [facility] is to followup later this morning, and reach out with their decision at that time.
[2020-09-03] MEDS: propofol 1,000 MG/100 ML INJ 18.9 MG IV ×3 (02:45→14:16)
[2020-09-03] MEDS: piperacillin-tazobactam 3.375 GM in sodium chloride 0.9% (plus) 50 ML IV ×2 (02:54→11:33)
[2020-09-03 04:02] LABS: Basophils % 0.4 %; Eosinophils % 0.2 %; Hematocrit 41.4 % (42.0-52.0); Hemoglobin 13.2 g/dL (11.7-16.6); Lymphocytes # 0.3 10^3/uL (0.8-4.8); Lymphocytes % 3.9 %; Mean Corpuscular HGB Conc 31.9 g/dL (30.0-36.0); Mean Corpuscular Hemoglobin 30.3 pg (28.0-34.0); Mean Corpuscular Volume 95.2 fL (80-94); Monocytes # 0.5 10^3/uL (0.2-0.9); Monocytes % 5.5 %; Neutrophils # 7.27 10^3/uL (1.8-7.7); Neutrophils % 85.8 %; Nucleated Red Blood Cells % 0 %; Platelet Count 247 10^3/cmm (130-400); Red Blood Count 4.35 10^6/uL (4.1-5.3); Red Cell Distribution Width 12.2 % (12.1-15.1); White Blood Count 8.5 10^3/uL (4.0-10.0)
[2020-09-03 04:23] LABS: Alanine Aminotransferase 25 U/L (0-41); Albumin Level 2.9 g/dL (3.5-5.2); Alkaline Phosphatase 80 IU/L (40-130); Anion Gap 14.5 (5-19); Aspartate Amino Transferase 71 U/L (0-40); Blood Urea Nitrogen 38 mg/dL (6-20); Calcium 7.7 mg/dL (8.5-10.5); Carbon Dioxide 25 mmol/L (22-29); Chloride 104 mmol/L (98-107); Globulin 2.9 g/dL (1.3-4.6); Glomerular Filtration Rate 69.2 mL/min (90-130); Glucose 146 mg/dL (65-115); Osmolality Calculated 300 mOsm/kg (285-295); Potassium 4.5 mmol/L (3.5-5.1); Sodium 139 mmol/L (136-145); Total Bilirubin 0.5 mg/dL (0.15-1.2); Total Protein 5.8 g/dL (6.6-8.7)
[2020-09-03 04:42] LABS: ABG PCO2 55.4 mmHg (35-45); ABG PH Result 7.27 (7.35-7.45); Base Excess ABG -2.7 mmol/L (-2.0-2.0); Blood Gas Sample Type Arterial; HCO3 ABG 25.2 mmol/L (22-26)
[2020-09-03 04:44] LABS: Blood Gas Operator Identificat HARKR; Blood Gas Sample Site Not specified; Oxygen Device VENT
[2020-09-03] MEDS: enoxaparin 60 mg/0.6 mL Syringe 120 MG SUBCUT (05:30)
--- NOTE | 2020-09-03 06:26 | PC.NURSE ---
TO4/BIS;
--- NOTE | 2020-09-03 06:39 | PC.NURSE ---
Contact #; Patient's - Tess updated cell number; [phone]
[2020-09-03] MEDS: cisatracurium 100 MG in sodium chloride 0.9% 50 ML 13.6 MG IV (07:16)
[2020-09-03 07:18] LABS: Glucose Point of Care 128 mg/dL (70-110)
[2020-09-03] MEDS: ipratropium-albuterol 3 mL Neb INHALATION ×2 (07:21→11:02)
--- NOTE | 2020-09-03 09:20 | PC.CHAP ---
Pastoral Care Encounter/Spiritual Assessment Type of Contact [] Declined recyclable products sorter visit [] Patient/Family/Request visit [] Outpatient visit [] Follow-up visit [] Physician referral [] Code/Alert [x] Routine visit [] Staff referral [] Actively dying [] Patient sleeping [] Family support [] [] Out of room [] Palliative care [] [] Receiving care in room [] Pre-surgical visit [] Trauma [] Long length of stay [x] ICU visit [x] Other:patient resting on tummy..not back.. Relational/Emotional Strength [] Patient feels connected with others/family/visitors/staff [] Distress [] Loneliness/isolation [] Abandonment Spirituality of Patient [] Person of Marycruz [] Attends Rastafari of their Marycruz [] Believes in Prayer [] Reads Bible or Sabianism materials [] There are Spiritual issues to be addressed Search Marketing Analyst Interventions [x] Prayer [] Active listening [] Non-anxious presence [] Spiritual/emotional support [] Crisis/trauma care [] Spiritual counseling [] Bereavement support [] Provided bereavement packet [] Provided Bible/devotional materials [] Provided toy/stuffed animal, coloring book to patient or family member [] Provided Communion [] Anointing/[place] [] Salvation [x] Completed spiritual assessment [] Other: Impact on Illness or Injury [] Angry [] Fearful [] Anxious [] Often cries [] Exhaustion [] Unable to work [] Unable to attend rastafarian [] Unable to walk/stand [] Unable to read [] Unable to drive [] Unable to eat/drink [] Unable to sleep [] Unable to be with family [] Patient intubated [] Other: Summary Time spent with patient
[2020-09-03 11:11] LABS: Glucose Point of Care 132 mg/dL (70-110)
[2020-09-03] MEDS: venlafaxine 75 mg Tablet PO (12:58)
[2020-09-03] MEDS: lamoTRIgine 100 mg Tablet 200 MG PO (12:58)
[2020-09-03] MEDS: atorvastatin 40 mg Tablet PO (12:59)
--- NOTE | 2020-09-03 14:48 | PM.TDS ---
Transfer Summary Providers Date of Admission: 08/28/20 04:12 Date of Discharge: 09/03/20 Attending Provider at Admission: Antony Tyson MD Attending Provider at Transfer: Mei Patterson MD Primary Care Provider: Kam Lainez DO Anticipated Date of Transfer: Anticipated date of transfer: 09/03/20 Receiving Facility & Provider: Receiving Provider: [Dr. Pavon, Revenue Integrity Analyst ] Receiving facility: [facility]] Diagnoses at Discharge Discharge Diagnosis (1) ARDS (adult respiratory distress syndrome): Status: Acute (2) COVID-19: Status: Acute (3) Hx of aortic valve replacement: Status: Acute Permanent problem details: for MARYLOU 0.6cm 2 in 2018 , on coumadin Reason for Visit Reason for Visit: Shortness of breath Hospital Course Hospital Course 54-year-old male with a past medical history of aortic valve replacement for aortic valve stenosis in 2018, currently on Coumadin, obstructive sleep apnea, hypertension, hyperlipidemia, chronic migraine, PTSD follows with neurology, presented to [facility] on August 28 as a transfer from [facility]. He was tested positive for Covid on August 24 initially, but it was not requiring any oxygen at the time however continued to have worsening shortness of breath,persistent fever, pleuritic chest pain and eventually came into the ER. At [facility] he was requiring 4 to 5 L of nasal cannula oxygenation to keep saturation above 90% however on arrival his O2 saturation was in low 80s on 5 L hence he was switched to nonrebreather which was not helpful hence decision was made to put him on high flow oxygen at the time of my evaluation he was on 35 L 55% FiO2, saturating 93%. BNP and troponin delta's were unremarkable. CTA of the chest was negative for PE. It did show diffuse bilateral infiltrates consistent with severe Covid ARDS. He was started on treatment with remdesivir, dexamethasone 6 mg IV daily, empiric levofloxacin initially, broadened to Zosyn and vancomycin on September 01, 2020 due to fever greater than 101 Fahrenheit. His oxygen requirements continued to worsen during the course of admission, escalated from high flow nasal cannula to heated high flow, to BiPAP and then patient was eventually intubated for respiratory failure on the morning of September 02, 2020. He was evaluated by hosiery knitter on September 02 and started on proning trial on same evening. Remained from for about 16 hours. His states that patient is overall healthy , independent of his ADLs. Quite smoking 2015, unknown PPD prior. He is net negative 2L during admission, last BNP 323 from 09/02. Patient may benefit from trial of other medical therapies including inhaled prostaglandin vs nitric oxide or possible ECMO, which we are currently unable to provide at [facility]. He is being transferred to higher level of care for the above. His is in agreement with the transfer and wishes to proceed. Physical Exam Narrative: EXAM NARRATIVE: General: intubated, paralyzed and sedated HEENT: pupils mid dilated Neck: No JVD Respiratory: Crackles at bilateral lung bases, no wheezing or rhonchi Cardiovascular: Regular rate and rhythm, S1-S2 present, no murmur, no peripheral edema. Abdomen: Soft, nondistended, absent bowel sound Skin: No rash Neuro: The patient is sedated Urinary Catheter Management^: Cooney: Cath Placed During This Visit: yes Reason for Continuing Indwelling Catheter: Accurate Measurement of Urinary Output in Critically Ill Patients Urinary Catheter Date of Insertion: 08/31/20 Urinary Catheter Time of Insertion: 08:30 TS Data Data Completed and Pending: Completed Studies During Hospitalization Category Date Time Status CT angio chest PE protcl [id number] Rout ine Cat Scan 08/30/20 08:00 Completed XR chest 1V alfonso ble [id number] Routine Exams 09/01/20 05:00 Completed XR chest 1V alfonso ble [id number] Stat Exams 08/30/20 00:50 Completed XR chest 1V alfonso ble [id number] Stat Exams 09/02/20 04:32 Completed XR chest 1V alfonso ble [id number] Stat Exams 09/02/20 18:57 Completed CV echo complete* [id number] Routine Ultrasound 08/31/20 08:53 Completed Pending at discharge Category Date Time Status ABG FULL [Arteria l Blood Gas Full] Routine Lab 09/02/20 04:50 Received Blood Culture Sta t Lab 09/01/20 10:20 Results Blood Culture Sta t Lab 09/02/20 20:37 Results Sputum Culture an d Gram Stain Stat Lab 09/02/20 08:18 Results Labs from last 24 hours 09/03/20 09/03/20 09/03/20 11:07 07:13 04:29 WBC RBC Hgb Hct MCV MCH MCHC RDW Plt Count MPV Neut % (Auto) Lymph % (Auto) Dillon % (Auto) Eos % (Auto) Baso % (Auto) Neut # (Auto) Lymph # (Auto) Dillon # (Auto) Eos # (Auto) Baso # (Auto) Nucleated RBC % (a uto) Nucleated RBCs # Specimen Type Arterial Sample Site Not specified ABG pH 7.27 L ABG pCO2 55.4 H ABG pO2 134.0 H ABG HCO3 25.2 ABG O2 Saturation ABG Base Excess -2.7 L Pop Test N/a A-a O2 Gradient Hematocrit 43.0 Hgb O2 Saturation Carboxyhemoglobin Methemoglobin Total Hemoglobin Sodium Potassium Glucose Ionized Calcium O2 Delivery Device Vent FiO2 70.0 Tidal Volume 0.50 PEEP 12.0 Cadmium Burner ID Harkr Chloride Carbon Dioxide Anion Gap BUN Creatinine GFR Calculation POC Glucose 132 H 128 H Calculated Osmolal ity Calcium Total Bilirubin AST ALT Alkaline Phosphata se Total Protein Albumin Globulin 09/03/20 09/03/20 09/02/20 03:42 03:42 22:00 WBC 8.5 RBC 4.35 Hgb 13.2 Hct 41.4 L MCV 95.2 H MCH 30.3 MCHC 31.9 RDW 12.2 Plt Count 247 MPV 10.0 Neut % (Auto) 85.8 Lymph % (Auto) 3.9 Dillon % (Auto) 5.5 Eos % (Auto) 0.2 Baso % (Auto) 0.4 Neut # (Auto) 7.27 Lymph # (Auto) 0.3 L Dillon # (Auto) 0.5 Eos # (Auto) 0.0 Baso # (Auto) 0.0 Nucleated RBC % (a uto) 0 Nucleated RBCs # 0.0 Specimen Type Arterial Sample Site Art line ABG pH 7.21 L ABG pCO2 58.6 H ABG pO2 137.0 H ABG HCO3 23.6 ABG O2 Saturation ABG Base Excess -5.2 L Pop Test N/a A-a O2 Gradient Hematocrit 43.2 Hgb O2 Saturation Carboxyhemoglobin Methemoglobin Total Hemoglobin Sodium 139 Potassium 4.5 Glucose 146 H Ionized Calcium O2 Delivery Device Vent FiO2 100.0 Tidal Volume 0.48 PEEP 12.0 Cadmium Burner ID Harkr Chloride 104 Carbon Dioxide 25 Anion Gap 14.5 BUN 38 H Creatinine 1.1 GFR Calculation 69.2 L POC Glucose Calculated Osmolal ity 300 H Calcium 7.7 L Total Bilirubin 0.5 AST 71 H ALT 25 Alkaline Phosphata se 80 Total Protein 5.8 L Albumin 2.9 L Globulin 2.9 09/02/20 09/02/20 09/02/20 21:42 19:29 18:17 WBC RBC Hgb Hct MCV MCH MCHC RDW Plt Count MPV Neut % (Auto) Lymph % (Auto) Dillon % (Auto) Eos % (Auto) Baso % (Auto) Neut # (Auto) Lymph # (Auto) Dillon # (Auto) Eos # (Auto) Baso # (Auto) Nucleated RBC % (a uto) Nucleated RBCs # Specimen Type Arterial Sample Site Art line ABG pH 7.28 L ABG pCO2 53.0 H ABG pO2 64.6 L ABG HCO3 24.8 ABG O2 Saturation 91.2 ABG Base Excess -2.7 L Pop Test N/a A-a O2 Gradient 75.5 H Hematocrit 42.8 Hgb O2 Saturation 89.5 L Carboxyhemoglobin 0.9 Methemoglobin 1.0 Total Hemoglobin 14.0 Sodium 140.0 Potassium 4.4 Glucose 147.0 H Ionized Calcium 1.2 O2 Delivery Device Vent FiO2 100.0 Tidal Volume 0.48 PEEP 12.0 Cadmium Burner ID Harkr Chloride Carbon Dioxide Anion Gap BUN Creatinine GFR Calculation POC Glucose 180 H 139 H Calculated Osmolal ity Calcium Total Bilirubin AST ALT Alkaline Phosphata se Total Protein Albumin Globulin Addt'l Data from Hospital Stay: Laboratory Results WBC 8.5 10^3/uL (4.0- 10.0) 09/03/20 03:42 RBC 4.35 10^6/uL (4.1 -5.3) 09/03/20 03:42 Hgb 13.2 g/dL (11.7-1 6.6) 09/03/20 03:42 Hct 41.4 % (42.0-52.0 ) L 09/03/20 03:42 MCV 95.2 fL (80-94) H 09/03/20 03:42 MCH 30.3 pg (28.0-34. 0) 09/03/20 03:42 MCHC 31.9 g/dL (30.0-3 6.0) 09/03/20 03:42 RDW 12.2 % (12.1-15.1 ) 09/03/20 03:42 Plt Count 247 10^3/cmm (130 -400) 09/03/20 03:42 MPV 10.0 fL (7.4-10.4 ) 09/03/20 03:42 Neut % (Auto) 85.8 % 09/03/20 03:42 Lymph % (Auto) 3.9 % 09/03/20 03:42 Dillon % (Auto) 5.5 % 09/03/20 03:42 Eos % (Auto) 0.2 % 09/03/20 03:42 Baso % (Auto) 0.4 % 09/03/20 03:42 Neut # (Auto) 7.27 10^3/uL (1.8 -7.7) 09/03/20 03:42 Lymph # (Auto) 0.3 10^3/uL (0.8- 4.8) L 09/03/20 03:42 Dillon # (Auto) 0.5 10^3/uL (0.2- 0.9) 09/03/20 03:42 Eos # (Auto) 0.0 10^3/uL (0.0- 0.8) 09/03/20 03:42 Baso # (Auto) 0.0 10^3/uL (0.0- 0.1) 09/03/20 03:42 Nucleated RBC % (a uto) 0 % 09/03/20 03:42 Nucleated RBCs # 0.0 /100WBC 09/03/20 03:42 ESR 14 mm/hr (0-10) H 09/01/20 07:26 PT 32.10 SECONDS (12 .1-14.9) H 08/31/20 04:27 INR 2.98 (0.8-1.2) H 08/31/20 04:27 D-Dimer >= 20.00 ug/mIFEU (0-0.59) H 09/01/20 07:26 Specimen Type Arterial 09/03/20 04:29 Sample Site Not specified 09/03/20 04:29 ABG pH 7.27 (7.35-7.45) L 09/03/20 04:29 ABG pCO2 55.4 mmHg (35-45) H 09/03/20 04:29 ABG pO2 134.0 mmHg (80.0- 100.0) H 09/03/20 04:29 ABG HCO3 25.2 mmol/L (22-2 6) 09/03/20 04:29 ABG O2 Saturation 91.2 09/02/20 19:29 ABG Base Excess -2.7 mmol/L (-2.0 -2.0) L 09/03/20 04:29 Pop Test N/a 09/03/20 04:29 A-a O2 Gradient 75.5 mmHg (5-10) H 09/02/20 19:29 Hematocrit 43.0 % (42-52) 09/03/20 04:29 Hgb O2 Saturation 89.5 % (95-100) L 09/02/20 19:29 Carboxyhemoglobin 0.9 %THgb (0.4-20 .1) 09/02/20 19:29 Methemoglobin 1.0 % (0.4-1.5) 09/02/20 19:29 Total Hemoglobin 14.0 g/dL (14-18) 09/02/20 19:29 Sodium 140.0 mmol/L (131 -143) 09/02/20 19:29 Potassium 4.4 mmol/L (3.5-5 .0) 09/02/20 19:29 Glucose 147.0 mg/dL (70-1 15) H 09/02/20 19:29 Ionized Calcium 1.2 mmol/L (1.1-1 .4) 09/02/20 19:29 O2 Delivery Device Vent 09/03/20 04:29 O2 Liters/Min 15.0 % 08/28/20 04:30 FiO2 70.0 % 09/03/20 04:29 Tidal Volume 0.50 09/03/20 04:29 PEEP 12.0 cmH20 09/03/20 04:29 Cadmium Burner ID Harkr 09/03/20 04:29 Sodium 139 mmol/L (136-1 45) 09/03/20 03:42 Potassium 4.5 mmol/L (3.5-5 .1) 09/03/20 03:42 Chloride 104 mmol/L (98-10 7) 09/03/20 03:42 Carbon Dioxide 25 mmol/L (22-29) 09/03/20 03:42 Anion Gap 14.5 (5-19) 09/03/20 03:42 BUN 38 mg/dL (6-20) H 09/03/20 03:42 Creatinine 1.1 mg/dL (0.7-1. 2) 09/03/20 03:42 GFR Calculation 69.2 mL/min (90-1 30) L 09/03/20 03:42 Glucose 146 mg/dL (65-115 ) H 09/03/20 03:42 POC Glucose 132 mg/dL (70-110 ) H 09/03/20 11:07 Calculated Osmolal ity 300 mOsm/kg (285- 295) H 09/03/20 03:42 Calcium 7.7 mg/dL (8.5-10 .5) L 09/03/20 03:42 Ferritin 1650 ng/mL (30-40 0) H 09/01/20 07:26 Total Bilirubin 0.5 mg/dL (0.15-1 .2) 09/03/20 03:42 AST 71 U/L (0-40) H 09/03/20 03:42 ALT 25 U/L (0-41) 09/03/20 03:42 Alkaline Phosphata se 80 IU/L (40-130) 09/03/20 03:42 Lactate Dehydrogen ase 709 U/L (135-225) H 08/28/20 05:10 C-Reactive Protein 42.5 mg/L (0.0-4. 9) H 09/01/20 07:26 NT-Pro-B Natriuret Pep 363 pg/mL (0-125) H 09/02/20 05:02 Total Protein 5.8 g/dL (6.6-8.7 ) L 09/03/20 03:42 Albumin 2.9 g/dL (3.5-5.2 ) L 09/03/20 03:42 Globulin 2.9 g/dL (1.3-4.6 ) 09/03/20 03:42 Procalcitonin 0.14 ng/mL (0-0.5 ) 09/02/20 05:02 Vancomycin Trough 11.0 ug/mL (10-15 ) 09/02/20 09:08 Impressions Chest CTA 08/30/20 08:00 IMPRESSION: 1. Suboptimal pulmonary arterial contrast enhancement. No grossly visible central pulmonary embolism/pulmonary arterial thrombus. 2. Bilateral pneumonitis/pneumonia. Overall presentation consideration might be given to Covid-19 pneumonitis/pneumonia. 3. Marginally prominent mediastinal and hilar lymph nodes most likely reactive. 4. Antecedent granulomatous disease. 5. Other nonurgent/nonemergent related findings as detailed in text above. COMMENTS: Consistent with the [employer]'s Incidental Findings Committee white paper (J Am Demetrio Radiol 2018): Any incidental renal lesion less than 1 cm or classified as too small to characterize, or any incidental cystic renal lesion characterized as simple-appearing, is likely benign. No follow-up imaging is recommended for these lesions per consensus recommendations based on imaging criteria. Radiation Dose CTDIVOL = (mGy): DLP = 594.66 (mGy-cm) Chest X-Ray 09/02/20 18:57 IMPRESSION: 1. Left-sided IJ catheter in place in satisfactory location. 2. Bilateral pulmonary infiltrates. Infiltrates in the left lower lung zones are improved since the last study but no other change. 2. ET tube and NG tube are both in satisfactory position. Echo : [place] [address] Ultrasound Report Signed Patient: Parker TheodoreUnit #: [id number] : 1965Acct#:[id number] Age/Sex: 54 / MADM Date: 08/28/20 Loc: ICURoom/Bed: [place] [address]: Saurav Ni MD Ordering Provider/Ordering MD: Saurav Ni MD Date of Service: 08/31/20 Procedure(s): CV echo complete* [id number] Accession Number(s): [id number] Report Number: [id number] Parker Theodore Age: 54 Gender: M : 1965 Exam Date: 08/31/2020 12:45 Ordering Phys: Saurav Ni MD Technologist: Cristy Javier Exam Location: [facility] Indication: SOB BP: 124 / 68 HR: 82 Rhythm: Sinus Technical Quality: Technically difficult study MEASUREMENTS (Male / Female) Normal Values 2D ECHO LV Diastolic Diameter PLAX 3.8 cm 4.2 - 5.9 / 3.9 - 5.3 cm LV Systolic Diameter PLAX 2.5 cm LV Chamber Size 3.9 cm IVS Diastolic Thickness 1.7 cm 0.6 - 1.0 / 0.6 - 0.9 cm IVS Systolic Thickness 1.8 cm LVPW Diastolic Thickness 1.4 cm 0.6 - 1.0 / 0.6 - 0.9 cm LVPW Systolic Thickness 1.9 cm RV Chamber Size 2.9 cm LVOT Diameter 2.0 cm LV Ejection Fraction 2D Teich 64.6 % LA Diameter 4.2 cm LA Width 2.5 cm LA Height 5.7 cm RA Width 2.8 cm RA Height 5.4 cm Aorta at Sinotubular Diameter 2.1 cm M-MODE LV Diastolic Diameter MM 5.6 cm 4.2 - 5.9 / 3.9 - 5.3 cm LV Systolic Diameter MM 3.6 cm LV Ejection Fraction MM Teich 64.9 % IVS Diastolic Thickness MM 1.2 cm 0.6 - 1.0 / 0.6 - 0.9 cm IVS Systolic Thickness MM 1.6 cm LVPW Diastolic Thickness MM 1.7 cm 0.6 - 1.0 / 0.6 - 0.9 cm LVPW Systolic Thickness MM 2.4 cm RV Diastolic Diameter MM 1.7 cm Aortic Annulus Diameter 3.6 cm LA Ao Ratio MM 1.2 DOPPLER AV Peak Velocity 178.4 cm/s LVOT Peak Velocity 95.0 cm/s AV Area Cont Eq vti 1.9 cm squared AV Area Cont Eq pk 1.6 cm squared MV Area PHT 3.9 cm squared Mitral E to A Ratio 1.0 MV E' Velocity 35.0 cm/s Mitral E to MV E' Ratio 7.8 Mitral E to LV E' Lateral Ratio 7.4 Mitral E to LV E' Septal Ratio 8.3 TV Peak E Velocity 46.0 cm/s Right Atrial Pressure 3.0 mmHg PV Peak Velocity 87.0 cm/s RV Acceleration Time 0.1 s RV Ejection Time 0.2 s RV AcT/ET 0.4 FINDINGS Left Ventricle Normal left ventricle size and systolic function. Left ventricular ejection fraction is estimated at 60 %. There is possible hypokinesis of basal inferoseptal wall. Normal diastolic function. Right Ventricle Normal right ventricular size and systolic function. Right Atrium Normal right atrial size. Left Atrium Left atrium not well visualized. Possibly normal left atrial size. Mitral Valve Mitral valve not well visualized. No mitral valve stenosis. No mitral valve regurgitation. Aortic Valve Aortic valve not well visualized. No aortic valve stenosis. Tricuspid Valve Tricuspid valve not well visualized. Pulmonic Valve Pulmonic valve not well visualized. Pericardium No pericardial effusion. Aorta Aorta not well visualized. CONCLUSIONS 1. This is a technically very difficult study. 2. Normal left ventricle size and systolic function. Left ventricular ejection fraction is estimated at 60 %. There is possible hypokinesis of basal inferoseptal wall. Normal diastolic function. 3. Repeat study with echo contrast is recommended. [facility] [address] [address] Ultrasound Report Signed Patient: Parker TheodoreUnit #: [id number] : 1965Acct#:[id number] Age/Sex: 54 / MADM Date: 08/28/20 Loc: ICURoom/Bed: [place] [address]: Saurav Ni MD Ordering Provider/Ordering MD: Saurav Ni MD Date of Service: 08/31/20 Procedure(s): CV echo complete* [id number] Accession Number(s): [id number] Report Number: [id number] Parker Theodore Age: 54 Gender: M : 1965 Exam Date: 08/31/2020 12:45 Ordering Phys: Saurav Ni MD Technologist: Cristy Javier Exam Location: [facility] Indication: SOB BP: 124 / 68 HR: 82 Rhythm: Sinus Technical Quality: Technically difficult study MEASUREMENTS (Male / Female) Normal Values 2D ECHO LV Diastolic Diameter PLAX 3.8 cm 4.2 - 5.9 / 3.9 - 5.3 cm LV Systolic Diameter PLAX 2.5 cm LV Chamber Size 3.9 cm IVS Diastolic Thickness 1.7 cm 0.6 - 1.0 / 0.6 - 0.9 cm IVS Systolic Thickness 1.8 cm LVPW Diastolic Thickness 1.4 cm 0.6 - 1.0 / 0.6 - 0.9 cm LVPW Systolic Thickness 1.9 cm RV Chamber Size 2.9 cm LVOT Diameter 2.0 cm LV Ejection Fraction 2D Teich 64.6 % LA Diameter 4.2 cm LA Width 2.5 cm LA Height 5.7 cm RA Width 2.8 cm RA Height 5.4 cm Aorta at Sinotubular Diameter 2.1 cm M-MODE LV Diastolic Diameter MM 5.6 cm 4.2 - 5.9 / 3.9 - 5.3 cm LV Systolic Diameter MM 3.6 cm LV Ejection Fraction MM Teich 64.9 % IVS Diastolic Thickness MM 1.2 cm 0.6 - 1.0 / 0.6 - 0.9 cm IVS Systolic Thickness MM 1.6 cm LVPW Diastolic Thickness MM 1.7 cm 0.6 - 1.0 / 0.6 - 0.9 cm LVPW Systolic Thickness MM 2.4 cm RV Diastolic Diameter MM 1.7 cm Aortic Annulus Diameter 3.6 cm LA Ao Ratio MM 1.2 DOPPLER AV Peak Velocity 178.4 cm/s LVOT Peak Velocity 95.0 cm/s AV Area Cont Eq vti 1.9 cm squared AV Area Cont Eq pk 1.6 cm squared MV Area PHT 3.9 cm squared Mitral E to A Ratio 1.0 MV E' Velocity 35.0 cm/s Mitral E to MV E' Ratio 7.8 Mitral E to LV E' Lateral Ratio 7.4 Mitral E to LV E' Septal Ratio 8.3 TV Peak E Velocity 46.0 cm/s Right Atrial Pressure 3.0 mmHg PV Peak Velocity 87.0 cm/s RV Acceleration Time 0.1 s RV Ejection Time 0.2 s RV AcT/ET 0.4 FINDINGS Left Ventricle Normal left ventricle size and systolic function. Left ventricular ejection fraction is estimated at 60 %. There is possible hypokinesis of basal inferoseptal wall. Normal diastolic function. Right Ventricle Normal right ventricular size and systolic function. Right Atrium Normal right atrial size. Left Atrium Left atrium not well visualized. Possibly normal left atrial size. Mitral Valve Mitral valve not well visualized. No mitral valve stenosis. No mitral valve regurgitation. Aortic Valve Aortic valve not well visualized. No aortic valve stenosis. Tricuspid Valve Tricuspid valve not well visualized. Pulmonic Valve Pulmonic valve not well visualized. Pericardium No pericardial effusion. Aorta Aorta not well visualized. CONCLUSIONS 1. This is a technically very difficult study. 2. Normal left ventricle size and systolic function. Left ventricular ejection fraction is estimated at 60 %. There is possible hypokinesis of basal inferoseptal wall. Normal diastolic function. 3. Repeat study with echo contrast is recommended. Microbiology 09/02/20 08:18 Sputum - Endotracheal Tube Aspirate Gram Stain - Final 09/02/20 08:18 Sputum - Endotracheal Tube Aspirate Sputum Culture - Preliminary Yeast species 09/02/20 20:37 Blood Blood Culture - Preliminary SPECIMEN COLLECTED 09/02/20 20:36 Blood Blood Culture - Preliminary SPECIMEN COLLECTED 09/01/20 10:20 Blood Blood Culture - Preliminary NEGATIVE TO DATE 09/01/20 10:12 Blood Blood Culture - Preliminary NEGATIVE TO DATE Vitals: Last Vital Signs Temp 98 F 09/03/20 08:05 Pulse 80 09/03/20 13:50 Resp 29 H 09/03/20 13:13 BP 107/75 09/03/20 13:50 Pulse Ox 97 09/03/20 13:50 Cardiac Enzymes 09/03/20 Range/Units 03:42 AST 71 H (0-40) U/L CBC 09/03/20 Range/Units 03:42 WBC 8.5 (4.0-10.0) 10^3/ uL RBC 4.35 (4.1-5.3) 10^6/u L Hgb 13.2 (11.7-16.6) g/dL Hct 41.4 L (42.0-52.0) % Plt Count 247 (130-400) 10^3/c mm Neut # (Auto) 7.27 (1.8-7.7) 10^3/u L Lymph # (Auto) 0.3 L (0.8-4.8) 10^3/u L Dillon # (Auto) 0.5 (0.2-0.9) 10^3/u L Eos # (Auto) 0.0 (0.0-0.8) 10^3/u L Baso # (Auto) 0.0 (0.0-0.1) 10^3/u L Comprehensive Metabolic Panel 09/03/20 Range/Units 03:42 Sodium 139 (136-145) mmol/L Potassium 4.5 (3.5-5.1) mmol/L Chloride 104 (98-107) mmol/L Carbon Dioxide 25 (22-29) mmol/L BUN 38 H (6-20) mg/dL Creatinine 1.1 (0.7-1.2) mg/dL Glucose 146 H (65-115) mg/dL Calcium 7.7 L (8.5-10.5) mg/dL AST 71 H (0-40) U/L ALT 25 (0-41) U/L Alkaline Phosphata se 80 (40-130) IU/L Total Protein 5.8 L (6.6-8.7) g/dL Albumin 2.9 L (3.5-5.2) g/dL Intake and Output 09/03/20 09/03/20 09/03/20 06:59 14:59 22:59 Intake Total 746.098 / 2325.427 577.94 / 577.94 Output Total 1250 / 1850 300 / 300 Balance -503.902 / 475.427 277.94 / 277.94 Intake: IV 746.098 / 2295.427 577.94 / 577.94 cisatracurium 100 mg In sodium 69.443 / 237.320 41 / 41 chloride 0.9% 50 ml @ Per Protocol IV .Q 0M SHONDA Rx#: [id number] fentaNYL 1,000 mcg In sodium 100 / 380.334 100 / 100 chloride 0.9% (100 ml) 80 ml @ Per Protocol I V .Q0M SHONDA Rx#: [id number] midazolam hcl 100 mg In sodium 78.8 / 78.8 chloride 0.9% (100 ml) 80 ml @ Per Protocol I V .Q0M SHONDA Rx#: [id number] norepinephrine 4 mg In dextrose 49.730 / 278.128 5% 250 ml @ Pe r Protocol IV . Q0M SHONDA Rx#:[id number] piperacillin-t azobactam 3.375 98.125 / 198.125 0 / 0 gm In sodium c hloride 0.9% ( plus) 50 ml @ 12.5 mls/hr IV Q8H SHONDA Rx#:[id number] propofol 1,000 mg In 100 ml @ 100 / 372.720 186.94 / 186.94 Per Protocol I V .Q0M SHONDA Rx#: [id number] vancomycin 1,2 50 mg In 250 ml @ 250 / 750 250 / 250 200 mls/hr IV Q8H SHONDA Rx#: [id number] Oral 0 / 0 Tube Irrigant 0 / 0 Output: Urine 1250 / 1850 0 / 0 Urine Amount (Ca theter) 300 / 300 Other: # Voids 0 # Bowel Movement s 0 TS Medications Medications Home Medications ascorbic acid (vitamin C) 500 mg capsule 500 mg PO DAILY@09 cap 08/21/19 [History Confirmed 08/28/20] cholecalciferol (vitamin D3) 50 mcg (2,000 unit) tablet 2,000 unit PO DAILY@89908/21/19 [History Confirmed 08/28/20] diltiazem HCl 60 mg tablet 60 mg PO BID@ tab 08/21/19 [History Confirmed 08/28/20] ferrous sulfate 325 mg (65 mg iron) tablet 325 mg PO DAILY@89908/21/19 [History Confirmed 08/28/20] lamotrigine 200 mg tablet 200 mg PO DAILY@202908/21/19 [History Confirmed 08/28/20] metoprolol tartrate 50 mg tablet 25 mg PO BID@08/21/19 [History Confirmed 08/28/20] omega-3 fatty acids 1,000 mg capsule 1,000 mg PO BID@08/21/19 [History Confirmed 08/28/20] omeprazole 40 mg capsule,delayed release 40 mg PO BID@08/21/19 [History Confirmed 08/28/20] rosuvastatin 10 mg tablet 10 mg PO DAILY@202908/21/19 [History Confirmed 08/28/20] trazodone 100 mg tablet 200 mg PO DAILY@89908/21/19 [History Confirmed 08/28/20] venlafaxine 75 mg tablet 75 mg PO DAILY@89908/21/19 [History Confirmed 08/28/20] warfarin 6 mg tablet 6 mg PO DAILY@89908/21/19 [History Confirmed 08/28/20] buspirone 10 mg tablet 20 mg PO BID@ tab 07/17/20 [History Confirmed 08/28/20] aspirin [Aspir-81] 81 mg PO DAILY@202908/28/20 [History Confirmed 08/28/20] zonisamide 400 mg PO BID@08/28/20 [History Confirmed 08/28/20] Active Medications Acetaminophen (Acetaminophen 325 Mg Tablet) 325 - 650 mg PO Q4H PRN PRN Reason: MILD PAIN OR INCREASE TEMP Last Admin: 09/02/20 12:06 Dose: 650 mg Documented by: Albuterol/Ipratropium (Ipratropium-Albuterol 3 Ml Neb) 3 ml INHALATION Q4H PRN PRN Reason: SHORTNESS OF BREATH Last Admin: 09/03/20 11:02 Dose: 3 ml Documented by: Aspirin (Aspirin 81 Mg Ec Tablet) 81 mg PO 1800 [facility] Last Admin: 09/02/20 19:08 Dose: Not Given Documented by: Atorvastatin Calcium (Atorvastatin 40 Mg Tablet) 40 mg PO DAILY [facility] Last Admin: 09/03/20 12:59 Dose: 40 mg Documented by: Dexamethasone (Dexamethasone 4 Mg/Ml Inj) 6 mg IVP Q24H [facility] Last Admin: 09/02/20 16:00 Dose: 6 mg Documented by: Dextrose (Dextrose 50% Syringe 50 Ml) 25 ml IVP ONCE PRN; Protocol PRN Reason: hypoglycemia protocol Dextrose (Dextrose 50% Syringe 50 Ml) 50 ml IVP PRN PRN; Protocol PRN Reason: hypoglycemia protocol Diltiazem HCl (Diltiazem 60 Mg Tablet) 60 mg PO BID [facility] Last Admin: 09/02/20 19:09 Dose: 60 mg Documented by: Enoxaparin Sodium (Enoxaparin 60 Mg/0.6 Ml Syringe) 120 mg SUBCUT Q12H [facility] Last Admin: 09/03/20 05:30 Dose: 120 mg Documented by: Glucagon (Glucagon 1 Mg/Ml Inj 1 Ml) 1 mg IM ONCE PRN; Protocol PRN Reason: Adult Acute Hypoglycemia Prot. Dextrose (D5w) 500 mls @ 100 mls/hr IV ONCE PRN; Protocol PRN Reason: Adult Acute Hypoglycemia Prot Piperacillin Sod/Tazobactam (Sod 3.375 gm/ Sodium Chloride) 50 mls @ 12.5 mls/hr IV Q8H [facility]; Protocol Last Admin: 09/03/20 11:33 Dose: 12.5 mls/hr Documented by: Vancomycin/PEG/NADA/Lysine/Water (Vancocin) 1,250 mg in 250 mls @ 200 mls/hr IV Q8H [facility] Last Infusion: 09/03/20 10:36 Dose: Infused Documented by: Fentanyl 1,000 mcg/ Sodium (Chloride) 100 mls @ 0 mls/hr IV .Q0M [facility]; Protocol Last Admin: 09/03/20 08:25 Dose: 175 mcg/hr, 17.5 mls/hr Documented by: Midazolam HCl 100 mg/ Sodium (Chloride) 100 mls @ 0 mls/hr IV .Q0M [facility]; Protocol Last Admin: 09/03/20 01:47 Dose: 4 mg/hr, 4 mls/hr Documented by: Propofol (Diprivan) 1,000 mg in 100 mls @ 0 mls/hr IV .Q0M [facility]; Protocol Last Admin: 09/03/20 09:40 Dose: 25 mcg/kg/min, 18.9 mls/hr Documented by: Norepinephrine Bitartrate 4 mg (/ Dextrose) 254 mls @ 0 mls/hr IV .Q0M [facility]; Protocol Last Titration: 09/03/20 03:00 Dose: 0 mcg/min, 0 mls/hr Documented by: Cisatracurium Besylate 100 mg/ (Sodium Chloride) 100 mls @ 0 mls/hr IV .Q0M [facility]; Protocol Last Admin: 09/03/20 07:16 Dose: 1.8 mcg/kg/min, 13.6 mls/hr Documented by: Insulin Aspart (Insulin Aspart 100 Unit/1 Ml) 0 unit SUBCUT WM&BEDTIME [facility]; Protocol Last Admin: 09/03/20 11:17 Dose: Not Given Documented by: Lamotrigine (Lamotrigine 100 Mg Tablet) 200 mg PO DAILY [facility] Last Admin: 09/03/20 12:58 Dose: 200 mg Documented by: Lorazepam (Lorazepam 2 Mg/Ml Inj 1 Ml) 0.25 mg IVP ONCE PRN PRN Reason: ANXIETY Last Admin: 08/31/20 01:08 Dose: 0.25 mg Documented by: Metoprolol Tartrate (Metoprolol Tartrate 50 Mg Tablet) 25 mg PO BID [facility] Last Admin: 09/02/20 19:08 Dose: Not Given Documented by: Venlafaxine HCl (Venlafaxine 75 Mg Tablet) 75 mg PO DAILY [facility] Last Admin: 09/03/20 12:58 Dose: 75 mg Documented by: Zonisamide (Zonisamide 100 Mg Capsule) 200 mg PO BID [facility] Last Admin: 09/01/20 18:22 Dose: 200 mg Documented by: Discharge Plan Discharge Patient Disposition: Xfer Other Condition: Stable Prescriptions: No Action buspirone 10 mg tablet 20 mg PO BID@0900,2030 RF: 0 cholecalciferol (vitamin D3) 2,000 unit tablet 2,000 unit PO DAILY@899 RF: 0 diltiazem HCl 60 mg tablet 60 mg PO BID@ RF: 0 trazodone 100 mg tablet 200 mg PO DAILY@899 RF: 0 omega-3 fatty acids [Fish Oil Concentrate] 1,000 mg capsule 1,000 mg PO BID@ RF: 0 metoprolol tartrate 50 mg tablet 25 mg PO BID@ RF: 0 omeprazole 40 mg capsule,delayed release(DR/EC) 40 mg PO BID@ RF: 0 lamotrigine 200 mg tablet 200 mg PO DAILY@2029 RF: 0 venlafaxine 75 mg tablet 75 mg PO DAILY@899 RF: 0 rosuvastatin 10 mg tablet 10 mg PO DAILY@2029 RF: 0 warfarin 6 mg tablet 6 mg PO DAILY@899 RF: 0 ascorbic acid (vitamin C) 500 mg capsule 500 mg PO DAILY@899 RF: 0 ferrous sulfate 325 mg (65 mg iron) tablet 325 mg PO DAILY@899 RF: 0 Aspir-81 81 mg Tablet,Delayed Release (Dr/Ec) 81 mg PO DAILY@2029 RF: 0 zonisamide 100 mg Capsule 400 mg PO BID@ RF: 0 Discharge Orders: Discharge Order (Routine); Ordered 09/03/20 Ordered By: Mei Patterson Transfer Attestations Time Spent in Transfer Care*: critical care time Critical Care Time (min): 90 Specific Discharge Activities: Specific discharge activities: educating and/or supporting family/caregiver, discussing with pcp/other providers, discussing with bottle caser/social workers/dc planners, documenting/other paperwork and evaluating patient/reviewing data Status at Transfer: Cognitive status at transfer: other, Behavioral status at transfer: other, Functional status at transfer: bed bound Overall status at transfer: patient is not back to baseline Quality Metrics Clinical Quality Measures: During this hospital stay, did patient experience: None Coding Level of Care Code Acute Practicing Urologist for Ces[facility] Fwd Diagnoses ARDS (adult respiratory distress syndrome) J80 COVID-19 U07.1 Hx of aortic valve replacement Z95.2
[2020-09-03 17:57] LABS: ABG PCO2 53.1 mmHg (35-45); ABG PH Result 7.29 (7.35-7.45); Base Excess ABG -1.7 mmol/L (-2.0-2.0); HCO3 ABG 25.7 mmol/L (22-26); Oxygen Saturation ABG 92.9; PO2 ABG 75.3 mmHg (80.0-100.0)
[2020-09-03 17:58] LABS: Blood Gas Allen Test pos; Oxygen Device vent; Potassium Level - ABG 4.1 mmol/L (3.5-5.0)
[2020-09-03 17:59] LABS: Alveolar-Arterial Oxygen Gradi 559.1 mmHg (5-10); Arterial Blood Gas Hematocrit 46.3 % (42-52); Carboxyhemoglobin 0.7 %THgb (0.4-20.1); HGB O2 Sat 91.4 % (95-100); Ionized Calcium Level - ABG 1.2 mmol/L (1.1-1.4); Methemoglobin 0.9 % (0.4-1.5); Total Hemoglobin 15.1 g/dL (14-18)
== END 2020-09-03 14:50 | disposition short-term general hospital (02) | DRG 208 ==
LOC: MEDSURG 08-29 10:08 → ICU 08-30 11:27
PROVIDERS: Internal Medicine; Internal Medicine Critical Care Medicine; Admitting Provider Internal Medicine; PCP Emergency Medicine Emergency Medical Services; Visit Provider Student in an Organized Health Care Education/Training Program
DX: U07.1 COVID-19 (principal); J12.82 Pneumonia due to coronavirus disease 2019; J96.01 Acute respiratory failure with hypoxia; J80 Acute respiratory distress syndrome; Z95.2 Presence of prosthetic heart valve; E87.6 Hypokalemia; E83.42 Hypomagnesemia; I10 Essential (primary) hypertension; Z87.891 Personal history of nicotine dependence; G56.02 Carpal tunnel syndrome, left upper limb; G43.111 Migraine with aura, intractable, with status migrainosus; F32.9 Major depressive disorder, single episode, unspecified; E78.5 Hyperlipidemia, unspecified; F43.10 Post-traumatic stress disorder, unspecified; G47.33 Obstructive sleep apnea (adult) (pediatric); Z79.82 Long term (current) use of aspirin; Z79.01 Long term (current) use of anticoagulants
CPT/HCPCS: 36415; 36416; 36592; 36600; 51702; 71045; 71275; 80048; 80051; 80053; 80202; 82330; 82728; 82803; 82805; 82962; 83615; 83880; 84145; 85025; 85378; 85610; 85651; 86140; 87040; 87070; 87106; 87205; 93005; 93306; 94002; 94003; 94640; 94660; 94762; 94799; 96372; C1751; J1100; J1650; J1815; J1940; J1956; J2060; J2250; J2543; J2704; J3010; J3370; J3490; J7040; J8540; Q9967